=== PATIENT | male | born 1930 | race Caucasian/White ===

== ENCOUNTER 2016-09-23 15:47 | Emergency (ER) | payer OTHER ==
[~2016-09-23] VITALS: Ht 188 cm; Wt 108.9 kg
[~2016-09-23 15:47] MED LIST: ADULT LOW DOSE81 MG PO; ADVAIR HFA 230M12 GM INH; ADVAIR HFA115 MCG/21 INH; ANTIVERT12.5 MG PO; ANTIVERT25 MG PO; AREDIA INJECTION; ARICEPT 5 MG TAB5 MG PO; ARICEPT10 MG PO; AUGMENTIN 500-1 EACH PO; AUGMENTIN 875-1 EACH PO; AVELOX 400 MG PO; AVELOX 400 MG400 M1 PO; AVELOX 400 MG400 MG PO; BACLOFEN 10MG T10 MG PO; BISACODYL10 MG RECTAL; BISCOLAX10 MG RC; BYSTOLIC 5 MG5 M1 PO; BYSTOLIC10 MG PO; CARAC30 GM TP; CEFTIN500 MG PO; COLACE100 MG PO; COUMADIN 2.5MG2.5 M1 PO; COUMADIN 5 MG TA5 M1 PO; DARVOCET-N 1001 EAC1 PO; DOXYCYCLINE 10100 MG PO; DURAGESIC1 EAC2 TD; ENOXAPARIN40 MG/0.1 SUBQ; FENTANYL PA12 MCG/HR TD; FISH OIL 1,0001 EAC5 PO; FISH OIL 1,001000 M1 PO; FISH OIL 1,001000 M2 PO; FISHOIL PO; FLAGYL500 MG PO; GLUCOSA-CHOND-1 EACH PO; GLUCOSAMINE HC100 GM; GLUCOSAMINE HC500 MG PO; HYDROCODON-ACE1 EAC5 PO; HYDROCODON-ACE1 EAC7 PO; HYDROCODONE PO; IBUPROFEN 600600 M1 PO; K-DUR 20 MEQ T20 MEQ PO; LACTULOSE10 GM/15 M PO; LASIX 20 MG TAB20 MG PO; LASIX 40 MG TAB40 M1 PO; LASIX 40 MG TAB40 M2 PO; LEVALBUTER1.25 MG/0. INH; LEXAPRO 10 MG T10 M1 PO; LEXAPRO 10 MG T10 MG PO; LEXAPRO20 MG PO; LIDODERM 5%1 PATC1 TOP; LIDODERM 5%1 PATC1 TRANSDERM; LIDODERM 5%1 PATCH TRANSDERM; LIPITOR40 MG PO; LOPRESSOR25 PO; LORTAB 5 MG/5001 TA1 PO; LORTAB 5-325 M1 EACH PO; LORTAB 5-500 T1 EAC1 PO; MAGNESIUM CITR296 ML PO; MILK OF MA2400 MG/10 PO; MIRALAX17 GM PO; MULTIVITAMINS PO; NEURONTIN 300300 M1 PO; NORCO 5-325 TA1 EACH; NORCO 5-325 TA1 EACH PO; OXYCODONE HCL5 M1 PO; PACERONE 200 M200 M1 PO; PACERONE200 MG PO; PAMIDRONATE; PERCOCET 7.5-31 EACH PO; PERCOCET PO; PHENERGAN-CODE120 ML PO; POTASSIUM20 PO; PREDNISOLONE 5 M5 M1 PO; PREDNISONE 10 M10 M1 PO; PREDNISONE 10 M10 MG; PREDNISONE 10 M10 MG PO; PREDNISONE 20 M20 M1 PO; PREDNISONE 20 M20 MG PO; PREDNISONE 5 MG5 M1; PREDNISONE 5 MG5 M1 PO; PRILOSEC 20 MG20 MG PO; PROTONIX40 M2 PO; ROBAXIN 750 MG750 M1 PO; SAVAYSA30 MG PO; SM GLUCOSAMINE1 EACH PO; SYMBICORT160 MCG/4. INH; SYNTHROID100 MCG PO; SYNTHROID75 MCG PO; SYNTHROID88 MCG PO; TRAMADOL 50 MG50 MG PO; TRIAMTERENE-HC1 EAC1 PO; TYLENOL325 MG PO; VENTOLIN17 GM; VISTARIL 25 MG25 M1 PO; VOLTAREN GEL 1100 G1 TOP; VOLTAREN100 GM; XOPENEX 1.25 MG/3 M1 INH; XOPENEX0.63 MG/3 INH; ZYRTEC10 M2 PO; [UNRECOGNIZED DRUG - OTHER] IV
[2016-09-23] MEDS ORDERED: SAVAYSA30 MG PO (16:13)
[2016-09-23 16:21] LABS: ABSOLUTE NEUTROPHILS 6.5 thou/uL (1.4-8.2); BASOPHILS 0.5 % (0.0-2.0); HEMATOCRIT 35.9 % (42.0-52.0); HEMOGLOBIN 12.5 gm/dL (14.0-18.0); LYMPHOCYTES 9.3 % (24.0-44.0); MCH 31.8 pg (26.0-34.0); MCHC 34.8 % (28.0-37.0); MCV 91.3 fL (80.0-100.0); MONOCYTES 9.4 % (1.0-8.0); PLATELET COUNT 154 thou/uL (150-400); POLYS 80.8 % (36.0-66.0); RBC 3.93 mil/uL (4.50-6.00); RDW 13.4 % (10.5-14.5); WBC 8.1 thou/uL (4.0-11.0)
[2016-09-23 16:26] LABS: MANUAL DIFF NO
[2016-09-23 17:19] LABS: CALCIUM 8.4 mg/dL (8.5-10.1); POTASSIUM 4.2 mmol/L (3.5-5.1)
[2016-09-23 17:43] VITALS: BP 129/68
[2016-11-16] MEDS ORDERED: PREDNISONE 10 M10 MG PO ×2 (10:37→11:10)
[2016-11-16] MEDS ORDERED: LEVAQUIN 500 M500 M6 PO (10:38)
[2016-11-16] MEDS ORDERED: LEVAQUIN 500 M500 M2 PO (11:10)
== END 2016-09-23 17:45 | disposition home or self-care (01) ==
LOC: ER 15:47
PROVIDERS: Nurse Practitioner
DX: R07.89 Other chest pain (principal); S00.12XA Contusion of left eyelid and periocular area, initial encounter; I48.91 Unspecified atrial fibrillation; J44.9 Chronic obstructive pulmonary disease, unspecified; G47.39 Other sleep apnea; R42 Dizziness and giddiness; E03.9 Hypothyroidism, unspecified; M19.90 Unspecified osteoarthritis, unspecified site; N18.3 Chronic kidney disease, stage 3 (moderate); G57.80 Other specified mononeuropathies of unspecified lower limb; F03.90 Unspecified dementia, unspecified severity, without behavioral disturbance, psychotic disturbance, mood disturbance, and anxiety; Z91.040 Latex allergy status; Z95.5 Presence of coronary angioplasty implant and graft; Z86.73 Personal history of transient ischemic attack (TIA), and cerebral infarction without residual deficits; Z96.651 Presence of right artificial knee joint; Z95.0 Presence of cardiac pacemaker; Z86.711 Personal history of pulmonary embolism; Z88.8 Allergy status to other drugs, medicaments and biological substances; Z87.891 Personal history of nicotine dependence; W10.8XXA Fall (on) (from) other stairs and steps, initial encounter; Y93.01 Activity, walking, marching and hiking; Y92.89 Other specified places as the place of occurrence of the external cause; Y99.8 Other external cause status

== ENCOUNTER → 2016-12-11 | Outpatient (CLI) | payer OTHER ==
[~2016-12-11] VITALS: Ht 182.9 cm; Wt 108.9 kg
[~2016-12-11] MED LIST changes: +ATORVASTATIN CA40 MG PO; +LEVAQUIN 500 M500 M2 PO; +LEVAQUIN 500 M500 M6 PO; +LEXAPRO 10 MG T10 M2 PO; +VOLTAREN GEL 1100 G2 TOP
--- NOTE | ~2016-12-11 | P ---
[facility] [place] [address] PROCEDURE REPORT Name: POLO VALIENTE Room #: REG Tiburcio Nowak#: [id number] Admission: 12/11/16 Attend Phys: Leonard Loera MD Discharge: Date of : 30 Report #: [id number] THIS REPORT FOR: //name// CC: Leonard Jimenez DATE OF SERVICE: 12/11/2016 PROCEDURE: Pacemaker generator exchange. PREOPERATIVE DIAGNOSIS: Pacemaker elective replacement interval. POSTOPERATIVE DIAGNOSIS: Pacemaker elective replacement interval. HISTORY OF PRESENT ILLNESS: The patient is an 86-year-old male with sick sinus syndrome, status post [employer] pacemaker implantation in 2007, whose device is currently at elective replacement interval. He is here for pacemaker generator exchange. ANESTHESIA: The patient underwent MAC anesthesia with no anesthesia related complications. DESCRIPTION OF PROCEDURE: The patient underwent informed consent. We discussed the details of the procedure including the risks, which include, but not limited to bleeding, infection and need for possible lead revisions. He understood these risks and is willing to proceed. As such, he was brought to the EP laboratory in a fasting and sedated state and prepped and draped in a sterile fashion and received IV antibiotics prior to the initiation of the procedure. Next, I injected lidocaine at the prior incision site. Incision was made and the pocket was opened using Bovie and blunt dissection. Next, the old pacemaker was disconnected from the leads. Leads were tested and found to be functioning normally. A new device was connected and the pocket was irrigated with vancomycin. The pocket was then closed in 3 layers using 2-0 for the deep layer, 3-0 for the mid layer and 4-0 for the subcuticular and surgical glue was placed to the outer skin. The patient awoke neurologically and hemodynamically intact. No complications and no significant bleeding. The explanted device was a [employer] model # FM6939, serial #[id number]. The newly implanted device was a [employer], model #AF6638, serial #[id number]. The atrial lead was a [employer] model #1688TC, 52 cm, serial #[id number] with a P-wave of 4.7 millivolts, pacing impedance of 410 ohms and pacing threshold of 0.75 volts at 0.4 milliseconds. The RV lead was a [employer] model #1688TC, 58 cm, serial #[id number] with a R-wave of 6.7 millivolts, pacing impedance of 410 ohms, and the pacing threshold 1 volt at 0.4 milliseconds. The device was programmed to the DDD 60-130 mode. CONCLUSIONS: [facility] [address] [place] [address] PROCEDURE REPORT Name: SUZIEJULIANOPOLODanii OLMSTEAD [facility] #: [id number] Admission: 12/11/16 Attend Phys: Leonard Loera MD Discharge: Date of : 30 Report #: [id number] 1. Successful dual-chamber pacemaker generator exchange. 2. Satisfactory atrial and ventricular pacing and sensing thresholds. By: 1132 1857 Leonard Loera MD /nt
[2016-12-11 08:29] LABS: ABSOLUTE NEUTROPHILS 4.9 thou/uL (1.4-8.2); BASOPHILS 0.2 % (0.0-2.0); EOSINOPHILS 0.2 % (0.0-3.0); HEMATOCRIT 37.2 % (42.0-52.0); HEMOGLOBIN 12.8 gm/dL (14.0-18.0); LYMPHOCYTES 20.1 % (24.0-44.0); MANUAL DIFF NO; MCH 31.5 pg (26.0-34.0); MCHC 34.3 g/dL (28.0-37.0); MCV 91.6 fL (80.0-100.0); MONOCYTES 10.3 % (1.0-8.0); PLATELET COUNT 148 thou/uL (150-400); POLYS 69.2 % (36.0-66.0); RBC 4.06 mil/uL (4.50-6.00); RDW 13.8 % (10.5-14.5); WBC 7.1 thou/uL (4.0-11.0)
[2016-12-11 08:38] VITALS: BP 146/67
[2016-12-11 08:44] LABS: CALCIUM 8.9 mg/dL (8.5-10.1); CREATININE 2.2 mg/dL (0.7-1.3); POTASSIUM 3.7 mmol/L (3.5-5.1)
[2016-12-11 08:45] LABS: APTT 24.1 Seconds (24.5-32.8); PROTIME 10.2 Seconds (9.3-11.4)
[2016-12-11 08:52] LABS: ALBUMIN 3.1 g/dL (3.4-5.0); TOTAL BILIRUBIN 0.6 mg/dL (<0.1-1.0); TOTAL PROTEIN 5.9 g/dL (6.4-8.2)
== END ==
LOC: CATH 08:03
PROVIDERS: Internal Medicine Cardiovascular Disease
DX: Z45.010 Encounter for checking and testing of cardiac pacemaker pulse generator [battery] (principal); I48.91 Unspecified atrial fibrillation; J44.9 Chronic obstructive pulmonary disease, unspecified; N18.3 Chronic kidney disease, stage 3 (moderate); G47.30 Sleep apnea, unspecified; Z95.1 Presence of aortocoronary bypass graft; M19.90 Unspecified osteoarthritis, unspecified site; I12.9 Hypertensive chronic kidney disease with stage 1 through stage 4 chronic kidney disease, or unspecified chronic kidney disease; E78.4 Other hyperlipidemia
CPT/HCPCS: 62110; 62900; 70005

== ENCOUNTER 2017-01-10 19:40 | Inpatient (IN) | payer OTHER ==
[~2017-01-10] VITALS: Ht 182.9 cm; Wt 106.3 kg
--- NOTE | ~2017-01-10 | EKG ---
[address] [place] [address] ELECTROCARDIOGRAM REPORT Name: POLO VALIENTE Room #: 303-P [facility]..#: [id number] Admission: 01/10/17 Attend Phys: Hiram Livingston Discharge: Date of : 30 Report #: [id number] THIS REPORT FOR: //name// [facility] ED Test Date: 2017-01-10 Test Time: 20:12:33 Pat Name: POLO VALIENTE Department: Room: [facility] Gender: M Concessions Manager: MZOOGuillermo : 1930 Requested By: Kat Contreras Order Number: [id number] MD: Leonard Loera Measurements Intervals Holmes Rate: 65 P: 12 NV: 235 QRS: -11 QRSD: 168 T: 19 QT: 516 QTc: 537 Interpretive Statements Sinus rhythm Prolonged NV interval Left bundle branch block Compared to ECG 07/18/2016 12:56:37 First degree AV block now present Left bundle-branch block now present AV dual-paced complex(es) or rhythm no longer present Ventricular-paced complex(es) or rhythm no longer present Electronically Signed On 01-12-2017 22:14:54 CDT by Leonard Loera [email or web address] <ELECTRONICALLY SIGNED> By: Leonard Loera MD 01/12/17 2214 11 11 Leonard Loera MD /EPI
--- NOTE | ~2017-01-10 | EKG ---
[address] [address] ELECTROCARDIOGRAM REPORT Name: SUZIEAnaPERICORONAPOLO AYSHA Room #: 303-[facility]..#: [id number] Admission: 01/10/17 Attend Phys: Hiram Livingston Discharge: Date of : 30 Report #: [id number] THIS REPORT FOR: //name// [facility] Test Date: 2017-01-11 Test Time: 03:19:25 Pat Name: POLO VALIENTE Department: Room: 303 P Gender: M Factory Assembler: karime soares rn : 1930 Requested By: Emilia Mcneil Order Number: [id number] MD: Leonard Loera Measurements Intervals [place] Rate: 65 P: FL: QRS: 4 QRSD: 171 T: 12 QT: 500 QTc: 520 Interpretive Statements Probably sinus rhythm Excess artifact making interpretation challenging Electronically Signed On 01-12-2017 22:17:19 CDT by Leonard Loera [email or web address] <ELECTRONICALLY SIGNED> By: Leonard Loera MD 01/12/17 2217 0319 0319 MD SJ Waters
--- NOTE | ~2017-01-10 | HC ---
[facility] [place] [address] CONSULTATION Name: POLO VALIENTE Room #: 303-P [facility] IN M.R.#: [id number] Admission: 01/13/17 Attend Phys: Hiram Livingston Discharge: 01/13/17 Date of : 30 Report #: [id number] THIS REPORT FOR: //name// CC: Hiram Jimenez DATE OF SERVICE: 01/13/2017 HISTORY OF PRESENT ILLNESS: The patient is an 86-year-old white male who was admitted with acute mental status changes, nausea. He has a history of chronic low back pain and renal insufficiency and had been started on a fentanyl patch a couple of weeks prior. CT of the head was negative. He was noted to have hypertension and was monitored with hydralazine p.r.n. His fentanyl was stopped with the mental status changes and he is to use Ultram. He seems to be gradually improving in that perspective. He does have significant peripheral neuropathy, which is due to the chemotherapy that he had for his multiple myeloma. He has symptoms involving both lower extremities as well as his upper extremities. He has an improving encephalopathy and does have peripheral neuropathy and we are seeing him in rehabilitation medicine consultation. PAST MEDICAL HISTORY: Includes prior history of AK. He has chronic kidney disease stage 3, TIA, sleep apnea with CPAP at night, chronic vertigo. He has a left knee surgery, coronary artery bypass grafting x 2 in 2000, CVA in 2001, back surgery in 2003, right knee replacement in 2006, multiple myeloma in 2007, pacemaker in 2007, noted to have back stenosis, hypertension, hyperlipidemia, and degenerative arthritis. PAST SURGICAL HISTORY: Delineated above. MEDICATIONS: Please see the full medication listing. HABITS: Former smoker, quit greater than a year ago. No history of ETOH abuse. ALLERGIES: LATEX and ALBUTEROL. SOCIAL HISTORY: Lives in a house with his , 2 steps in. Used a cane in the house and a walker when in public. His notes that he does have a gait belt and she would hold on to him whenever he would use the cane or if he did not use any gait aids. She did not need to use it, however, if he used the walker. She notes that he does have a history of falls with falling in the backyard, falling in the house, and is a definite risk. REVIEW OF SYSTEMS: Did not offer any complaints of any headache or visual problem. There is no chest pain, shortness of breath, or abdominal discomfort. Notes he does have some numbness with some weakness of his hands and notes especially numbness of both lower extremities below the knees. He does have [facility] [address] [place] [address] CONSULTATION Name: POLO VALIENTE Room #: 303-P [facility] IN M.R.#: [id number] Admission: 01/13/17 Attend Phys: Hiram Livingston Discharge: 01/13/17 Date of : 30 Report #: [id number] gait issues, which his notes. He has the chronic low back pain history. He does have decreased memory with some dementia as noted. PHYSICAL EXAMINATION: GENERAL: An 86-year-old white male in no obvious distress. VITAL SIGNS: Last recorded temperature 98.5, pulse 65, respirations 18, blood pressure 152/63. NEUROLOGIC: He is alert, pleasant, hard of hearing, has hearing aids, defer some answers to his , will follow basic 1 step commands. Pleasant and cooperative. Functional range of motion of both upper and lower extremities: Strength probably a grade 4-/5. He has some decreased distal sensation of his hands. He might have some mild decreased coordination. In his lower extremities, his strength is more of a grade 4-/5 proximally and 4- to 3+ distally. EXTREMITIES: He has definite decreased sensation which is significant below the knees with marked decreased proprioception of the large toes and some definite decreased proprioception even of the ankles. Appears to have some weakness of bilateral extensor hallucis longus. There is no focal calf swelling. No significant distal lower extremity edema. Functionally, he has been needing min assist with basic sit to stand transfers and needs assistance for short distance walker ambulation. ASSESSMENT: An 86-year-old white male with the following problem list: 1. Peripheral polyneuropathy. 2. Improving toxic metabolic encephalopathy. 3. Chronic kidney disease stage 3. 4. Chronic low back pain with intolerance to narcotics. 5. Chronic respiratory failure with chronic obstructive pulmonary disease. 6. Hypertension. 7. History of multiple myeloma. 8. Sleep apnea with CPAP at night. 9. History of chronic vertigo. 10. Gait instability with history of falls. 11. Prior subdural hematoma in 2003. 12. Prior back surgery in 2003. 13. History of some dementia and was living in a community with his . PLAN: The patient is a candidate for an acute [address] [place] [address] Inpatient Rehabilitation stay. From a preadmission screening perspective: 1. Prior level of function is well delineated above. 2. Expect level of improvement would be for the patient to become modified independent with transfers, mobility, and ADLs and also to further improve as far as cognitive level to return back to the home setting with his . We would anticipate length of stay of probably at least 7 days to 14 days pending progress. 3. Evaluation of the patient's risk for clinical complications. He does have [address] [place] [address] CONSULTATION Name: POLO VALIENTE Room #: 303-P [facility] IN M.R.#: [id number] Admission: 01/13/17 Attend Phys: Jerzycholo Guru Carlabecky Discharge: 01/13/17 Date of : 30 Report #: [id number] the above noted multiple medical comorbidities as noted above. 4. Condition that caused the need for rehabilitation would be the peripheral polyneuropathy and the toxic metabolic encephalopathy. 5. Treatments needed would include PT, OT, and speech 1 hour per day each 5 days a week throughout the duration of the acute inpatient rehabilitation stay. We may be able to transition increasing the PT and OT and decreasing the speech depending upon how he does. 6. Anticipated discharge destination is to home with . 7. Would anticipate home healthcare therapies once ready for discharge. 8. The patient meets diagnostic criteria for an acute in-hospital inpatient rehabilitation stay. He meets medical necessity criteria. He does have the tolerance for an acute rehab level of therapies and has appropriate discharge goals back to the home setting. <ELECTRONICALLY SIGNED> By: Monty Tello MD 01/15/17 1528 1404 2244 Monty Tello MD /nt
[2017-01-10 19:41] VITALS: BP 195/79
[2017-01-10] MEDS ORDERED: LOPRESSOR50 PO (20:00)
[2017-01-10] MEDS ORDERED: FENTANYL PA25 MCG/HR TRANSDERM (20:01)
[2017-01-10 20:05] LABS: HEMATOCRIT 38.2 % (42.0-52.0); HEMOGLOBIN 13.2 gm/dL (14.0-18.0); MCH 31.2 pg (26.0-34.0); MCHC 34.7 g/dL (28.0-37.0); MCV 90.2 fL (80.0-100.0); PLATELET COUNT 141 thou/uL (150-400); RBC 4.23 mil/uL (4.50-6.00); RDW 13.5 % (10.5-14.5); WBC 5.6 thou/uL (4.0-11.0)
[2017-01-10 20:10] LABS: MANUAL DIFF YES
[2017-01-10 20:20] LABS: ANION GAP 10 mmol/L (7-16); BUN 24 mg/dL (7-18); CALCIUM 7.6 mg/dL (8.5-10.1); CHLORIDE 108 mmol/L (98-107); CO2 25 mmol/L (21-32); GLUCOSE 145 mg/dL (74-106); SODIUM 143 mmol/L (136-145)
[2017-01-10 20:31] LABS: ALBUMIN 3.1 g/dL (3.4-5.0); ALKALINE PHOSPHATASE 86 U/L (46-116); NT-PRO BRAIN NAT PEPTIDE 843 pg/mL (<300); SGOT 19 U/L (15-37); SGPT 17 U/L (30-65); TOTAL BILIRUBIN 0.6 mg/dL (<0.1-1.0); TROPONIN-I < 0.04 ng/mL (<0.04-0.07)
[2017-01-10 20:37] LABS: ABSOLUTE NEUTROPHILS 5.1 thou/uL (1.4-8.2); METAMYELOCYTES 1 %; TOTAL CELL COUNT 100
[2017-01-10 20:57] LABS: URINE BILIRUBIN NEGATIVE (Negative); URINE BLOOD TRACE (Negative); URINE COLOR YELLOW; URINE GLUCOSE-RANDOM* NEGATIVE (Negative); URINE KETONES NEGATIVE (Negative); URINE NITRITE NEGATIVE (Negative); URINE PROTEIN (DIPSTICK) NEGATIVE (Negative); URINE SPECIFIC GRAVITY 1.015 (1.003-1.035); URINE UROBILINOGEN 0.2 E.U./dl (0.2-1.0)
[2017-01-10 22:50] VITALS: BP 166/70
[2017-01-11] VITALS (12 sets, daily range): BP systolic 145–223; BP diastolic 59–104
[2017-01-12 00:05] VITALS: BP 149/70
[2017-01-12 04:04] VITALS: BP 171/71
[2017-01-12 05:28] LABS: ALBUMIN 3.1 g/dL (3.4-5.0); CREATININE 1.9 mg/dL (0.7-1.3); PHOSPHORUS 3.9 mg/dL (2.5-4.9)
[2017-01-12 07:06] VITALS: BP 151/66
[2017-01-12 15:33] VITALS: BP 150/67
[2017-01-12 19:34] VITALS: BP 140/61
[2017-01-13 04:05] VITALS: BP 151/63
[2017-01-13 05:02] LABS: CALCIUM 7.7 mg/dL (8.5-10.1); CREATININE 2.1 mg/dL (0.7-1.3); POTASSIUM 4.1 mmol/L (3.5-5.1)
[2017-01-13 07:27] VITALS: BP 152/63
[2017-01-13 08:06] VITALS: BP 152/63
[2017-01-13] MEDS ORDERED: TRAMADOL 50 MG50 MG PO (08:54)
== END 2017-01-13 16:45 | DRG 73 ==
LOC: ER 19:40 → EROBS 21:21 → 3N 22:54
PROVIDERS: Hospitalist; Nurse Practitioner Family
DX: G62.89 Other specified polyneuropathies (principal); G92 Toxic encephalopathy; J96.10 Chronic respiratory failure, unspecified whether with hypoxia or hypercapnia; R07.9 Chest pain, unspecified; I48.91 Unspecified atrial fibrillation; J44.9 Chronic obstructive pulmonary disease, unspecified; F03.90 Unspecified dementia, unspecified severity, without behavioral disturbance, psychotic disturbance, mood disturbance, and anxiety; Z96.653 Presence of artificial knee joint, bilateral; E03.9 Hypothyroidism, unspecified; M19.90 Unspecified osteoarthritis, unspecified site; I12.9 Hypertensive chronic kidney disease with stage 1 through stage 4 chronic kidney disease, or unspecified chronic kidney disease; N18.3 Chronic kidney disease, stage 3 (moderate); G47.30 Sleep apnea, unspecified; R26.9 Unspecified abnormalities of gait and mobility; Z96.89 Presence of other specified functional implants; E78.5 Hyperlipidemia, unspecified; E83.51 Hypocalcemia; T45.1X5A Adverse effect of antineoplastic and immunosuppressive drugs, initial encounter; Y92.89 Other specified places as the place of occurrence of the external cause; G89.29 Other chronic pain; M54.9 Dorsalgia, unspecified; Z79.891 Long term (current) use of opiate analgesic; Z79.899 Other long term (current) drug therapy; Z90.79 Acquired absence of other genital organ(s); Z95.5 Presence of coronary angioplasty implant and graft; Z98.42 Cataract extraction status, left eye; Z98.41 Cataract extraction status, right eye; Z86.73 Personal history of transient ischemic attack (TIA), and cerebral infarction without residual deficits; Z87.891 Personal history of nicotine dependence; Z86.711 Personal history of pulmonary embolism; Z87.81 Personal history of (healed) traumatic fracture; Z95.1 Presence of aortocoronary bypass graft; Z88.8 Allergy status to other drugs, medicaments and biological substances; Z91.040 Latex allergy status; I25.2 Old myocardial infarction

== ENCOUNTER 2017-01-13 14:21 | Inpatient (IN) | payer OTHER ==
[~2017-01-13] VITALS: Ht 182.9 cm; Wt 109.0 kg
--- NOTE | ~2017-01-13 | HC ---
[facility] [place] [address] CONSULTATION Name: POLO VALIENTE Room #: 515-P ADM IN M.R.#: [id number] Admission: 01/13/17 Attend Phys: Monty Tello MD Discharge: Date of : 30 Report #: [id number] THIS REPORT FOR: //name// CC: Monty Jimenez DATE OF SERVICE: 01/18/2017 ATTENDING PHYSICIAN: Monty Tello M.D. SHEETER HELPER: Audi Reese, PhD CLINICAL PRESENTATION: The patient is an 86-year-old male admitted to [facility] rehabilitation unit for a comprehensive inpatient rehabilitation program to improve functional mobility, activities of daily living and self-care and mental status secondary to a toxic metabolic encephalopathy. The patient is reported to have been living at home with his when he experienced mental status changes. He reportedly was given a fentanyl patch about 2 weeks prior to his admission. The fentanyl patch is described as having contributed to the confusion and disorientation. The patient also has peripheral neuropathy due to chemotherapy from multiple myeloma. PAST MEDICAL HISTORY: Includes his myocardial infarction, chronic kidney disease stage 3, TIA, sleep apnea with a CPAP, chronic vertigo, left knee surgery, coronary artery bypass grafting x 2, CVA in 2001, back surgery in 2003, right knee replacement in 2006, multiple myeloma in 2007 and a pacemaker placed in 2007, lower back stenosis, hypertension, hyperlipidemia and degenerative arthritis. A complete description of his medical condition and history can be found in his medical record. Neuropsychological consultation was requested to provide assistance in the assessment of cognitive and emotional status and to provide recommendations and services. Prior to this most recent admission, he was living independently with his in their home. This is his second marriage. He has 5 biological children and 1 step child. The patient has a 10th grade education. He was employed in the [employer] prior to his nursing home. 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 He does not report a history of treatment for alcohol/drug abuse or mental illness. TECHNIQUES UTILIZED: Clinical interview, review of medical records, staff consultation and behavioral observation, the brief cognitive stat exam and category fluency. [facility] [address] [place] [address] CONSULTATION Name: POLO VALIENTE AYSHA Room #: 515-P [facility] IN ..#: [id number] Admission: 01/13/17 Attend Phys: Monty Tello MD Discharge: Date of : 30 Report #: [id number] EXAMINATION FINDINGS: The patient was alert and cooperative with the assessment. He was uncertain of the reason for his hospitalization and has amnesia surrounding his initial admission. The patient was able to indicate that he had had an overdose of pain medication. He reports chronic pain as longstanding. Subjective feelings of depression are described as a result of his medical condition. He also reports depression from the sale of many of his possessions about 2 years ago. He does not report difficulty with sleep, appetite or energy level. Variability in memory is reported. His performance on the brief cognitive status exam was within normal limits with a total raw score of 43, which is within normal limits and in the average range. The patient had some difficulty with visual spatial organization and construction. Mental control and incidental memory appeared to be within normal limits. He was alert and oriented. Time estimation was within normal limits. Mental control was within normal limits. He was able to draw a clock and set the hands at a designated time. Frontal lobe control was within normal limits as assessed by inhibition test. DIAGNOSTIC IMPRESSION: Neurocognitive disorder, unspecified, without behavior disorder. Unspecified depressive disorder. RECOMMENDATIONS: The patient will benefit from a treatment program for depression that includes verbal praise and complements about participation in therapies and encouraged to recognize the gains in independence he is making. He will also benefit from the use of an antidepressant medication. Reportedly he is taking medication for memory. Thank you very much for allowing me to provide the consultation on this patient. <ELECTRONICALLY SIGNED> By: Audi Reese, PhD 01/22/17 1752 1453 2307 Audi Reese, PhD /nt
--- NOTE | ~2017-01-13 | PLAN ---
[facility] [place] [address] REHAB UNIT PLAN OF CARE Name: POLO VALIENTE Room #: 515-P ADM IN M.R.#: [id number] Admission: 01/13/17 Attend Phys: Monty Tello MD Discharge: Date of : 30 Report #: [id number] THIS REPORT FOR: //name// CC: Monty Jimenez DATE OF SERVICE: 01/15/2017 HISTORY OF PRESENT ILLNESS: The patient is seen back today in followup. He is in no distress. Last recorded temperature 36.6, pulse 65, respirations 18 and blood pressure 142/63. He does have some left upper back, posterior neck discomfort. He notes he does have some nightmares on occasion and thinks he may have strained his neck. His had utilized Lidoderm patch just prior to admission. Otherwise, he has no specific complaints. Temperature 36.6, pulse 65, respirations 18 and blood pressure 142/63. There is no focal spasm of his posterior neck cervical paraspinals or across the trapezius. He has some decreased cervical spine range of motion, but that is noted to be premorbid and his notes that he does have a history of degenerative arthritis. He did have a last CT scan in September of this year of the cervical spine, which showed extensive spondylosis, most severe at C5-C6 and C6-C7. From a functional perspective, he is transferring with min assist and is ambulating 110 feet contact guard with a front-wheeled walker. In occupational therapy, supervision for upper body dressing with min assist for lower body dressing. In speech therapy, he has mild comprehensive deficits with mild expressive deficits. ASSESSMENT: 1. Peripheral polyneuropathy. 2. Improving toxic metabolic encephalopathy. He does have the mild speech therapy deficits, as noted above. 3. Left-sided upper back, posterior neck discomfort. Apparently a muscular strain. He does have Voltaren gel that is ordered. We will ask physical therapy to use some superficial heat and some gentle soft tissue work over the area. 4. Chronic kidney disease stage 3. 5. Chronic low back pain with intolerance to narcotics. 6. Chronic respiratory failure with chronic obstructive pulmonary disease. 7. Hypertension. 8. History of multiple myeloma. 9. Obstructive sleep apnea with CPAP at night. 10. History of chronic vertigo. 11. Gait instability with history of falls. PLAN: The overall plan of care is based on the preadmission screen, post-admission physician evaluation and information garnered from therapy assessments. 1. Estimated length of stay is probably at least 7-10 days and likely longer. [address] [address] REHAB UNIT PLAN OF CARE Name: POLO VALIENTE AYSHA Room #: 515-P [facility] IN .R.#: [id number] Admission: 01/13/17 Attend Phys: Monty Tello MD Discharge: Date of : 30 Report #: [id number] 2. Medical prognosis is reasonably good. 3. Anticipated interventions includes the interdisciplinary acute inpatient rehabilitation program with PT and OT and speech, rehabilitation nursing assisting regarding medication management, skin care prophylaxis, bowel and bladder issues and nursing education. 4. Anticipated functional outcomes would be for the patient to become modified independent with transfers, mobility, ADLs along with cognition and communication so that he can hopefully return back to his prior living situation. 5. Discharge destination will be back to the home setting with . 6. Expected therapy by discipline includes PT, OT and speech 1 hour per day each 5 days a week throughout the duration of the acute inpatient rehabilitation stay. <ELECTRONICALLY SIGNED> By: Monty Tello MD 01/15/17 1534 1032 1057 Monty Tello MD /nt
--- NOTE | ~2017-01-13 | H ---
[facility] [place] [address] HISTORY AND PHYSICAL Name: POLO VALIENTE Room #: 515-P ADM IN M.R.#: [id number] Admission: 01/13/17 Attend Phys: Monty Tello MD Discharge: Date of : 30 Report #: [id number] THIS REPORT FOR: //name// CC: Monty Jimenez DATE OF SERVICE: 01/13/2017 HISTORY OF PRESENT ILLNESS: The patient is an 86-year-old white male originally admitted to [facility] with acute mental status changes and nausea. He has a history of chronic low back pain and renal insufficiency and was started on a fentanyl patch a couple of weeks prior. CT of the head was negative. He was noted to have hypertension and was monitored with hydralazine p.r.n. His fentanyl was stopped with the mental status changes and he was switched over to Ultram. He seemed to be gradually improving in that perspective. He also has significant peripheral neuropathy due to chemotherapy that he had for his multiple myeloma. He has symptoms involving both lower extremities as well as his upper extremities. He also has an improving encephalopathy and does have peripheral neuropathy. He has now been admitted for acute in-hospital inpatient rehabilitation. PAST MEDICAL HISTORY: Includes a prior history of an RI. He has chronic kidney disease stage 3, TIA, sleep apnea with CPAP at night, chronic vertigo. He has left knee surgery, coronary artery bypass grafting x 2 in 2000, CVA in 2001, back surgery 2003, right knee replacement 2006, multiple myeloma 2007, pacemaker 2007, noted to have lower back stenosis, hypertension, hyperlipidemia and degenerative arthritis. PAST SURGICAL HISTORY: As noted above. MEDICATIONS: Please see the full medication listing. Each of these was individually reconciled. The medication list includes his medications, supplements, over the counters, etc. HABITS: Former smoker, quit greater than a year ago. No history of ETOH abuse. ALLERGIES: LATEX and ALBUTEROL. SOCIAL HISTORY: Lives in a house with his , 2 steps in. Used a cane in a house and a walker when in public. His notes that he does have a gait belt and she would hold on to him whenever he would use the cane or if he did not use any gait aids. She did not need to use the gait belt, however, if he used a walker. She noted that he does have a history of falls with falling in the backyard, falling in the house and is a definite risk. REVIEW OF SYSTEMS: He did not offer any complaints of headache, visual [address] [address] HISTORY AND PHYSICAL Name: POLO VALIENTE Room #: 515-P [facility] IN .R.#: [id number] Admission: 01/13/17 Attend Phys: Monty Tello MD Discharge: Date of : 30 Report #: [id number] problems. No chest pain, shortness of breath, abdominal discomfort. He does have the numbness with some weakness of his hands as well as especially both lower extremities below the knee. He has the history of chronic low back pain, has decreased memory/dementia. PHYSICAL EXAMINATION: GENERAL: An 86-year-old white male in no obvious distress. VITAL SIGNS: Temperature 98.5, pulse 65, respirations 18, blood pressure 138/71. The patient was seen earlier and was somewhat sleepy. Facies appeared to be symmetric. HEENT: Appeared benign. CHEST: Sounded clear to auscultation. CARDIAC: Regular rate and rhythm. ABDOMEN: Bowel sounds positive, nontender. GENITOURINARY AND RECTAL: Deferred. NEUROLOGIC: He is rather hard of hearing. EXTREMITIES: Functional range of motion of both upper and lower extremities, strength is grade 4-/5. He has some decreased distal sensation, but again, I did not test it too much as I had tested it earlier with my consult. Sensation is especially in the lower extremities below the knee as well as some decrease of the hands. His lower extremity strength is probably more of a 4- to 3+/5 of his distal lower extremities. He does have weakness of bilateral extensor hallucis longus probably a grade 3+. No focal calf swelling. No significant distal lower extremity edema. He has been needing min assist with basic transfers. ASSESSMENT: An 86-year-old white male with the following problem list: 1. Peripheral polyneuropathy. 2. Improving toxic metabolic encephalopathy. 3. Chronic kidney disease stage 3. 4. Chronic low back pain with intolerance to narcotics. 5. Chronic respiratory failure with chronic obstructive pulmonary disease. 6. Hypertension. 7. History of multiple myeloma. 8. Sleep apnea with CPAP at night. 9. History of chronic vertigo. 10. Gait instability with history of falls. 11. Prior subdural hematoma in 2003. 12. Prior back surgery in 2003. 13. History of some dementia, but was living in the community with his . PLAN: The patient is admitted for acute in-hospital inpatient rehabilitation. From a postadmission physician evaluation perspective, there are no relevant changes since the preadmission screening. Please see the above review of prior and current medical and functional conditions and comorbidities. Please see the patient's prior and current functional status. As far as risk of complications, [address] [address] HISTORY AND PHYSICAL Name: POLO VALIENTE Room #: 515-P ADM IN [facility].#: [id number] Admission: 01/13/17 Attend Phys: Monty Tello MD Discharge: Date of : 30 Report #: [id number] he has the above noted comorbidities. Initial plan of care involves the interdisciplinary acute inpatient rehabilitation program with the goal of maximizing his functional independence, so he can hopefully return back to his prior living situation. Measurable functional goals would be for the patient to become modified independent with transfers, mobility issues, basic ADLs at least at the walker level. The goal is to get him back to the point where his can handle him at home. Prognosis is reasonably good. Would anticipate length of stay of probably at least 7-10 days and likely longer depending upon his progress. Potential barriers would include the multiple medical comorbidities and decreased functional status. He does have the cognitive deficits with his encephalopathy as well as the functional deficits, further complicated by the neuropathy. The patient meets diagnostic criteria for an acute in-hospital inpatient rehabilitation stay. He meets medical necessity criteria. He does have the tolerance for an acute rehab stay and has appropriate discharge goals back to the home setting. Please see my prior consult note dictation for further information and justification regarding his needs for an acute in-hospital inpatient rehabilitation stay. <ELECTRONICALLY SIGNED> By: Monty Tello MD 01/15/17 1534 1349 1421 Monty Tello MD /nt
[~2017-01-13 14:21] MED LIST changes: +FENTANYL PA25 MCG/HR TRANSDERM; +LOPRESSOR50 PO
[2017-01-13 17:00] VITALS: BP 115/66
[2017-01-14 05:56] VITALS: BP 138/71
[2017-01-14 06:42] LABS: HEMATOCRIT 36.8 % (42.0-52.0); HEMOGLOBIN 12.6 gm/dL (14.0-18.0); MCHC 34.4 g/dL (28.0-37.0); MCV 90.2 fL (80.0-100.0); RBC 4.08 mil/uL (4.50-6.00); RDW 13.7 % (10.5-14.5); WBC 8.5 thou/uL (4.0-11.0)
[2017-01-14 06:53] LABS: CALCIUM 8.2 mg/dL (8.5-10.1); CREATININE 1.8 mg/dL (0.7-1.3); POTASSIUM 4.4 mmol/L (3.5-5.1)
[2017-01-14 16:00] VITALS: BP 138/66
[2017-01-15 05:09] LABS: CALCIUM 8.3 mg/dL (8.5-10.1); CREATININE 2.1 mg/dL (0.7-1.3); MAGNESIUM 1.9 mg/dL (1.8-2.4); POTASSIUM 4.3 mmol/L (3.5-5.1)
[2017-01-15 05:30] VITALS: BP 162/64
[2017-01-15 16:00] VITALS: BP 125/67
[2017-01-16 05:30] VITALS: BP 124/77
[2017-01-16 16:14] VITALS: BP 132/62
[2017-01-17 04:58] VITALS: BP 136/58
[2017-01-17 05:14] LABS: CALCIUM 8.5 mg/dL (8.5-10.1); CREATININE 2.5 mg/dL (0.7-1.3); MAGNESIUM 2.1 mg/dL (1.8-2.4); POTASSIUM 4.1 mmol/L (3.5-5.1)
[2017-01-17 15:25] VITALS: BP 151/62
[2017-01-18 05:35] VITALS: BP 148/67
[2017-01-18 08:39] VITALS: BP 110/57
[2017-01-18 15:26] VITALS: BP 129/70
[2017-01-19 05:56] VITALS: BP 118/66
[2017-01-19 06:45] VITALS: BP 105/70
[2017-01-19 17:06] VITALS: BP 149/69
[2017-01-20 04:44] VITALS: BP 135/63
[2017-01-20 16:00] VITALS: BP 124/54
[2017-01-21 02:45] LABS: HEMATOCRIT 33.5 % (42.0-52.0); HEMOGLOBIN 11.6 gm/dL (14.0-18.0); MCH 31.3 pg (26.0-34.0); MCHC 34.7 g/dL (28.0-37.0); MCV 90.1 fL (80.0-100.0); RBC 3.72 mil/uL (4.50-6.00); RDW 13.4 % (10.5-14.5); WBC 7.3 thou/uL (4.0-11.0)
[2017-01-21 02:51] LABS: CALCIUM 8.5 mg/dL (8.5-10.1); CREATININE 2.1 mg/dL (0.7-1.3); POTASSIUM 4.1 mmol/L (3.5-5.1)
[2017-01-21 05:26] VITALS: BP 128/78
[2017-01-21 08:00] VITALS: BP 124/59
[2017-01-21 13:47] VITALS: BP 124/59
[2017-01-21 17:30] VITALS: BP 138/67
[2017-01-22 08:00] VITALS: BP 135/70
[2017-01-22 09:23] LABS: ABSOLUTE NEUTROPHILS 7.2 thou/uL (1.4-8.2); BASOPHILS 0.4 % (0.0-2.0); HEMATOCRIT 38.7 % (42.0-52.0); HEMOGLOBIN 13.2 gm/dL (14.0-18.0); LYMPHOCYTES 20.7 % (24.0-44.0); MCHC 34.2 g/dL (28.0-37.0); MCV 90.8 fL (80.0-100.0); MONOCYTES 8.4 % (1.0-8.0); PLATELET COUNT 174 thou/uL (150-400); POLYS 70.5 % (36.0-66.0); RBC 4.27 mil/uL (4.50-6.00); RDW 13.4 % (10.5-14.5); WBC 10.2 thou/uL (4.0-11.0)
[2017-01-22 09:25] LABS: MANUAL DIFF NO
[2017-01-22 09:34] LABS: ALBUMIN 3.3 g/dL (3.4-5.0); CALCIUM 9.4 mg/dL (8.5-10.1); CREATININE 2.3 mg/dL (0.7-1.3); DIRECT BILIRUBIN 0.1 mg/dL (<0.1-0.3); POTASSIUM 4.3 mmol/L (3.5-5.1); TOTAL BILIRUBIN 0.5 mg/dL (<0.1-1.0); TOTAL PROTEIN 6.5 g/dL (6.4-8.2)
[2017-01-22 13:30] VITALS: BP 124/59
[2017-01-22 15:38] VITALS: BP 135/62
[2017-01-23 05:51] VITALS: BP 119/67
[2017-01-23 08:30] VITALS: BP 119/65
[2017-01-23] MEDS ORDERED: TRAMADOL 50 MG50 MG PO (09:21)
[2017-01-23 10:53] VITALS: BP 124/59
== END 2017-01-23 13:13 | disposition home or self-care (01) | DRG 92 ==
PROVIDERS: Family Medicine; Nurse Practitioner; Physical Medicine & Rehabilitation
DX: G92 Toxic encephalopathy (principal); J96.10 Chronic respiratory failure, unspecified whether with hypoxia or hypercapnia; M19.90 Unspecified osteoarthritis, unspecified site; G62.9 Polyneuropathy, unspecified; J44.9 Chronic obstructive pulmonary disease, unspecified; G47.33 Obstructive sleep apnea (adult) (pediatric); R42 Dizziness and giddiness; R26.9 Unspecified abnormalities of gait and mobility; Z96.651 Presence of right artificial knee joint; E78.5 Hyperlipidemia, unspecified; N18.3 Chronic kidney disease, stage 3 (moderate); F32.9 Major depressive disorder, single episode, unspecified; G89.29 Other chronic pain; M54.5 Low back pain; F03.90 Unspecified dementia, unspecified severity, without behavioral disturbance, psychotic disturbance, mood disturbance, and anxiety; I48.91 Unspecified atrial fibrillation; I12.9 Hypertensive chronic kidney disease with stage 1 through stage 4 chronic kidney disease, or unspecified chronic kidney disease; I25.2 Old myocardial infarction; Z86.73 Personal history of transient ischemic attack (TIA), and cerebral infarction without residual deficits; Z95.1 Presence of aortocoronary bypass graft; Z95.0 Presence of cardiac pacemaker; Z88.8 Allergy status to other drugs, medicaments and biological substances; Z91.040 Latex allergy status; Z95.5 Presence of coronary angioplasty implant and graft; Z86.711 Personal history of pulmonary embolism; Z79.899 Other long term (current) drug therapy
CPT/HCPCS: 10112

== ENCOUNTER 2017-04-17 14:55 | Inpatient (IN) | payer OTHER ==
[~2017-04-17] VITALS: Ht 182.9 cm; Wt 108.3 kg
--- NOTE | ~2017-04-17 | HC ---
[facility] [place] [address] CONSULTATION Name: POLO VALIENTE Room #: 306-P ADM IN M.R.#: [id number] Admission: 04/17/17 Attend Phys: Von Jimenez MD Discharge: Date of : 30 Report #: [id number] THIS REPORT FOR: //name// CC: Syed Jimenez DATE OF SERVICE: 04/18/2017 PRIMARY CARE PHYSICIAN: Von Jimenez MD. REFERRAL PHYSICIAN: Syed Chauhan MD. REASON FOR REFERRAL: Dyspnea. HISTORY OF PRESENT ILLNESS: The patient is an 86-year-old white male with long history of COPD who presents with progressive dyspnea. A pulmonary consultation was requested. The patient is followed longitudinally in the office by Dr. Hardy. He is known to have COPD with overlap syndrome with asthma. His last hospitalization was back in 01/2017. The patient is normally on Symbicort, nebulized Xopenex. According to the , the patient has been doing fairly well until about a week ago when he developed cold-like symptoms. Antibiotics were given as an outpatient. Symptoms did not improve, but worsened yesterday. He was then admitted. Otherwise, no recent febrile illness, chest pain, or hemoptysis. He had a productive cough of yellowing to green sputum. No recent nausea, vomiting, or diarrhea. PAST MEDICAL HISTORY: Remarkable for overlap syndrome with COPD and asthma, felt to be severe; atrial fibrillation, chronic; dementia; peripheral neuropathy; chronic kidney disease; THAO on auto-titrating CPAP; vertigo; history of multiple fractures; coronary artery disease with prior stenting; osteoarthritis, severe and history of venous thromboembolic disease. PAST SURGICAL HISTORY: Status post permanent pacemaker placement and coronary artery bypass surgery. ALLERGIES: ALBUTEROL, which causes tachycardia, LATEX causes severe crump. HOME MEDICATIONS: Reviewed as in the medication list. [facility] [address] [place] [address] CONSULTATION Name: POLO VALIENTE Room #: 306-P [facility] IN [facility].#: [id number] Admission: 04/17/17 Attend Phys: Von Jimenez MD Discharge: Date of : 30 Report #: [id number] FAMILY HISTORY: Mother with rheumatoid arthritis, also history of lung cancer, brain tumor, diabetes, and coronary artery disease in other members of the family. SOCIAL HISTORY: The patient is and lives with his . The patient has smoked, but quit in 1973. REVIEW OF SYSTEMS: As mentioned above, otherwise a 10-point system review negative. PHYSICAL EXAMINATION: GENERAL: He is awake, alert, in no apparent distress. VITAL SIGNS: Temperature is 98.5 degrees Fahrenheit, pulse is 62, respiratory rate is 19, blood pressure is 130/64 mmHg, and saturation is 97% on O2. HEENT: Normocephalic and atraumatic. NECK: Supple without any lymphadenopathy or thyromegaly. CHEST: Breath sounds are fair. Air movements are decreased. No obvious rales. No obvious wheezes are heard. CARDIOVASCULAR: Normal S1, S2. There are no murmurs or gallop. There is no JVD. There is no carotid bruit. Pulses are 2+/4+ bilaterally. ABDOMEN: Soft, nontender. No organomegaly or masses felt. GENITOURINARY: Deferred. RECTAL: Deferred. EXTREMITIES: There is no edema, cyanosis, or clubbing. LABORATORY DATA: Chest x-ray on admission revealed chronic mild plate-like atelectasis involving the right lower lobe, otherwise no acute changes. Electrolytes: Sodium 140, potassium 5.6, chloride 105, CO2 is 26, BUN is 28, and creatinine is 2.2, which appears to be baseline. WBC 9600, no obvious left shift, hemoglobin 12.6, and platelets are normal. Albumin 3.0. IMPRESSION: 1. Progressive dyspnea in this 86-year-old white male with a long history of chronic obstructive pulmonary disease/asthma. Chest x-ray is relatively unremarkable. Suspect the patient has underlying exacerbation of chronic obstructive pulmonary disease/asthma. May be related to recent viral syndrome. 2. Chronic obstructive pulmonary disease/asthma overlap, felt to be severe impairment. 3. Chronic kidney disease, creatinine at baseline. 4. Coronary artery disease, status post coronary bypass surgery. 5. Sick sinus syndrome status post permanent pacemaker. 6. Multiple lymphoma. 7. Dementia. 8. Peripheral neuropathy. 9. Past history of cerebrovascular accident with right-sided weakness. 10. Hypertension, gastroesophageal reflux disease, and hypothyroidism. [address] [address] CONSULTATION Name: POLO VALIENTE Room #: 306-P [facility] IN M.R.#: [id number] Admission: 04/17/17 Attend Phys: Von Jimenez MD Discharge: Date of : 30 Report #: [id number] 11. Obstructive sleep apnea, on auto-CPAP. RECOMMENDATIONS: I agree with usual treatment including corticosteroids, bronchodilators, and broad-spectrum antibiotics. DVT and GI prophylaxis will be addressed. Wean O2 for saturation 90%. Continue CPAP at night time. Thank you for this consultation. By: 1159 1540 PILLO Beck /kathie
--- NOTE | ~2017-04-17 | 2DMMODE ---
[facility] [address] [place] [address] 2 D/M-MODE ECHOCARDIOGRAM Name: POLO VALIENTE AYSHA Room #: 306-P ADM IN M.R.#: [id number] Admission: 04/17/17 Attend Phys: Von Jimenez, Discharge: Date of : 30 Date of Service: 04/23/17 1408 Report #: [id number] THIS REPORT FOR: //name// APPROVED REPORT Study performed: 04/23/2017 12:15:03 EXAM: Comprehensive 2D, Doppler, and color-flow Echocardiogram Patient Location: Echo lab Room #: 306 Status: routine BSA: 2.30 HR: 80 bpm BP: 179/77 mmHg Rhythm: NSR Other Information Study Quality: Adequate Technically limited study due to lung disease, body habitus. Indications Dyspnea Hx: CABG, PPM, HTN 2D Dimensions RVDd: 42.43 mm LVEF(%): 62.18 (>50%) IVSd: 14.95 (7-11mm) LVOT Diam: 23.42 (18-24mm) LVDd: 51.93 mm PWd: 14.71 (7-11mm) Ascending Ao: 41.55 (22-36mm) LVDs: 34.41 (25-40mm) Aortic Root: 38.56 mm Polk's LVEF: 62.18 % Volumes Left Atrial Volume (Systole) Single Plane 4CH: 86.56 mL Single Plane 2CH: 86.07 mL LA ESV Index: 40.00 mL/m2 Aortic Valve AoV Peak Deepak.: 2.22 m/s AO Peak Gr.: 19.70 mmHg LVOT Max P.02 mmHg AO Mean Gr.: 11.62 mmHg AO V2 Mean: 1.64 m/s LVOT Max V: 1.12 m/s AO V2 VTI: 41.52 cm [facility] [place] [address] 2 D/M-MODE ECHOCARDIOGRAM Name: POLO VALIENTE [facility] Room #: 306-P [facility] IN .R.#: [id number] Admission: 04/17/17 Attend Phys: Von Jimenez, Discharge: Date of : 30 Date of Service: 04/23/17 1408 Report #: [id number] LOLLY Vmax: 2.17 cm2 Mitral Valve E/A Ratio: 0.7 MVA Planimetry: 2281.69 mm2 MV Decel. Time: 180.24 ms MV E Max Deepak.: 0.59 m/s MV A Deepak.: 0.87 m/s MV PHT: 52.27 ms IVRT: 87.66 ms Pulmonary Valve PV Peak Deepak.: 0.90 m/s PV Peak Gr.: 3.22 mmHg Pulmonary Vein P Vein S: 0.73 m/s P Vein A: 0.32 m/s P Vein D: 0.54 m/s P Vein A Dur.: 120.0 msec P Vein S/D Ratio: 1.35 Tricuspid Valve TR Peak Deepak.: 3.10 m/s TR Peak Gr.: 38.56 mmHg Left Ventricle The left ventricle is normal size. Moderate concentric left ventricular hypertrophy. The left ventricular systolic function is normal. LVEF is 55%. Mild diastolic dysfunction is present (impaired relaxation pattern). Right Ventricle Right ventricle is mildly dilated. The right ventricular systolic function is normal. Pacemaker lead is present in the right ventricle. Atria Left atrium is dilated. Right atrium is dilated. Aortic Valve Aortic valve is calcified. Trace aortic regurgitation. There is no aortic valvular stenosis. Mitral Valve The mitral valve is normal in structure. Mild mitral annular calcification. Mild mitral regurgitation. Tricuspid Valve not well visualized There is moderate tricuspid regurgitation. There is moderate pulmonary hypertension with an estimated PAP of 39mmHg [place] [address] [place] [address] 2 D/M-MODE ECHOCARDIOGRAM Name: POLO VALIENTE Room #: 306-P [facility] IN ..#: [id number] Admission: 04/17/17 Attend Phys: Von Jimenez, Discharge: Date of : 30 Date of Service: 04/23/17 1408 Report #: [id number] plus the right atrial pressure. Pulmonic Valve The pulmonary valve is normal in structure. Trace pulmonic regurgitation. Great Vessels Aortic root is dilated at 3.9cm Ascending aorta is dilated at 4.2cm. IVC is not well visualized. Pericardium There is no pericardial effusion. <Conclusion> The left ventricle is normal size. LVEF is 55%. Right ventricle is mildly dilated. The right ventricular systolic function is normal. Pacemaker lead is present in the right ventricle. Left atrium is dilated. Right atrium is dilated. Aortic valve is calcified. Trace aortic regurgitation. The mitral valve is normal in structure. Mild mitral annular calcification. Mild mitral regurgitation. not well visualized There is moderate tricuspid regurgitation. There is moderate pulmonary hypertension with an estimated PAP of 39mmHg plus the right atrial pressure. The pulmonary valve is normal in structure. Trace pulmonic regurgitation. Aortic root is dilated at 3.9cm Ascending aorta is dilated at 4.2cm. <ELECTRONICALLY SIGNED> By: Adiel Oliveira MD 04/23/17 1408 1408 1408 Adiel Oliveira MD /INF
--- NOTE | ~2017-04-17 | H ---
[facility] [place] [address] HISTORY AND PHYSICAL Name: POLO VALIENTE Room #: 306-P ADM IN M.R.#: [id number] Admission: 04/17/17 Attend Phys: Von Jimenez MD Discharge: Date of : 30 Report #: [id number] THIS REPORT FOR: //name// CC: Syed Jimenez CHIEF COMPLAINT: Cough and shortness of breath. HISTORY OF PRESENT ILLNESS: The patient is an 86-year-old man with complicated past medical history, including history of COPD, who was treated about a week ago for COPD exacerbation. He just finished his prednisone and antibiotic course. The patient visited primary care physician, and he was referred here for further evaluation and inpatient treatment. The patient states that he was sent here because his examination revealed wheezes and abnormal lung sounds. The patient feels short of breath, which is his baseline. Since he came in, he was started on oxygen by nasal cannula. His oxygen saturation is in low to mid 90s. Overall, he feels well, and he denies any complaints except the shortness of breath at baseline. He also has mild cough, that is nonproductive. The patient denies fevers or chills. He has no chest pains. PAST MEDICAL HISTORY: 1. COPD, non-oxygen dependent. 2. Chronic kidney disease stage 3. 3. Coronary artery disease. 4. Sick sinus syndrome, status post pacemaker. 5. Dementia. 6. Multiple myeloma. 7. Peripheral neuropathy due to chemotherapy. 8. CVA, residual right-sided weakness. 9. Hypertension. 10. GERD. 11. Hypothyroidism. HOME MEDICATIONS: Reviewed and documented in the patient's chart. FAMILY HISTORY: Reviewed and not pertinent to the patient's current condition. SOCIAL HISTORY: The patient lives with his . He does not smoke cigarettes, and does not drink alcohol. REVIEW OF SYSTEMS: As above in HPI section. All others negative. PHYSICAL EXAMINATION: GENERAL: The patient is an elderly man who is in no apparent distress. VITAL SIGNS: Blood pressure is 158/73, heart rate is 65, respiration is 18-20, temperature is 98.0, and oxygen saturation is 97% on 2 liters of oxygen by nasal cannula. [address] [address] HISTORY AND PHYSICAL Name: POLO VALIENTE AYSHA Room #: 306-P [facility] IN ..#: [id number] Admission: 04/17/17 Attend Phys: Von Jimenez MD Discharge: Date of : 30 Report #: [id number] HEENT: Pupils are equal. Eye movements are normal. The patient has anicteric sclerae. NECK: Supple. The patient has no thyromegaly. Oral mucosa is moist. Neck lymphadenopathy is not palpated. RESPIRATORY: The patient has scattered wheezes. Respiratory sounds are diminished throughout. The patient has no crackles or rhonchi. CARDIOVASCULAR: The patient has regular rhythm and rate. He has no murmurs, gallops, or rubs. S1 and S2 are distant. GASTROINTESTINAL: Abdomen is soft, nondistended and nontender. Bowel sounds are present. The patient has no hepatomegaly or splenomegaly. MUSCULOSKELETAL: There is no edema, cyanosis, or clubbing. NEUROLOGIC: The patient has residual mild right-sided weakness. He is alert and oriented times 2, himself and place. SKIN: The patient has no skin lesions. LABS AND IMAGING STUDIES: Not available at this time. ASSESSMENT AND PLAN: 1. Chronic obstructive pulmonary disease exacerbation, mild, based on clinical presentation. The patient will be started on nebulizers, as well as IV steroids, and Levaquin. The patient is well known by pulmonary service. [employer] Technician will be consulted. 2. Hypertension. Blood pressure is slightly elevated. Home medications will be confirmed and renewed. Hydralazine will be used for elevated blood pressure. 3. Hypothyroidism, the patient is on levothyroxine 100 mcg a day. We will check TSH and adjust levothyroxine as necessary. 4. History of multiple myeloma. The patient started 24-hour urine collection this morning, which will be completed tomorrow morning. This will be followed by the patient's oncologist. 5. Deep venous thrombosis prophylaxis. We will use subcutaneous Lovenox, renally adjusted dose. <ELECTRONICALLY SIGNED> By: Syed Chauhan MD 04/18/17 1534 1710 1849 Syed Chauhan MD /nt
[2017-04-17 16:55] VITALS: BP 158/73
[2017-04-17 17:26] LABS: HEMATOCRIT 37.2 % (42.0-52.0); HEMOGLOBIN 12.6 gm/dL (14.0-18.0); MCH 30.9 pg (26.0-34.0); PLATELET COUNT 168 thou/uL (150-400); RBC 4.09 mil/uL (4.50-6.00); RDW 13.7 % (10.5-14.5); WBC 9.6 thou/uL (4.0-11.0)
[2017-04-17 17:28] LABS: MANUAL DIFF YES
[2017-04-17 17:44] LABS: CALCIUM 8.6 mg/dL (8.5-10.1); CREATININE 2.4 mg/dL (0.7-1.3); POTASSIUM 4.8 mmol/L (3.5-5.1); TOTAL BILIRUBIN 0.7 mg/dL (<0.1-1.0)
[2017-04-17 17:47] LABS: PLATELET ESTIMATE NORMAL; TOTAL CELL COUNT 100
[2017-04-17 20:00] VITALS: BP 193/75
[2017-04-18] VITALS: BP 146/59
[2017-04-18 04:00] VITALS: BP 162/99
[2017-04-18 04:07] LABS: CALCIUM 8.5 mg/dL (8.5-10.1); CREATININE 2.2 mg/dL (0.7-1.3); POTASSIUM 5.6 mmol/L (3.5-5.1)
[2017-04-18 04:16] LABS: HEMATOCRIT 37.3 % (42.0-52.0); HEMOGLOBIN 12.9 gm/dL (14.0-18.0); MCH 31.1 pg (26.0-34.0); MCHC 34.5 g/dL (28.0-37.0); MCV 90.3 fL (80.0-100.0); PLATELET COUNT 171 thou/uL (150-400); RBC 4.13 mil/uL (4.50-6.00); RDW 13.7 % (10.5-14.5); WBC 6.2 thou/uL (4.0-11.0)
[2017-04-18 04:17] LABS: MANUAL DIFF YES
[2017-04-18 05:18] LABS: ABSOLUTE NEUTROPHILS 5.5 thou/uL (1.4-8.2); MYELOCYTES 2 %; TOTAL CELL COUNT 100
[2017-04-18 08:26] LABS: URINE BILIRUBIN NEGATIVE (Negative); URINE BLOOD NEGATIVE (Negative); URINE COLOR YELLOW; URINE GLUCOSE-RANDOM* TRACE (Negative); URINE KETONES NEGATIVE (Negative); URINE LEUKOCYTES-REFLEX NEGATIVE (Negative); URINE PROTEIN (DIPSTICK) TRACE (Negative); URINE SPECIFIC GRAVITY 1.015 (1.003-1.035); URINE UROBILINOGEN 0.2 E.U./dl (0.2-1.0)
[2017-04-18 08:40] VITALS: BP 131/64
[2017-04-18 15:41] VITALS: BP 156/80; BP 1569/80
[2017-04-18 17:11] LABS: URINE CREATININE 81.94 mg/dL
[2017-04-18 17:12] LABS: URINE PROTEIN (MG/DL) 28.5 mg/dL
[2017-04-18 19:18] VITALS: BP 134/66
[2017-04-19 03:42] VITALS: BP 132/71
[2017-04-19 04:11] LABS: HEMATOCRIT 36.7 % (42.0-52.0); HEMOGLOBIN 12.4 gm/dL (14.0-18.0); MCH 30.3 pg (26.0-34.0); MCHC 33.9 g/dL (28.0-37.0); MCV 89.5 fL (80.0-100.0); PLATELET COUNT 161 thou/uL (150-400); RDW 13.5 % (10.5-14.5); WBC 12.5 thou/uL (4.0-11.0)
[2017-04-19 04:13] LABS: MANUAL DIFF YES
[2017-04-19 04:14] LABS: CALCIUM 8.6 mg/dL (8.5-10.1); CREATININE 2.1 mg/dL (0.7-1.3); POTASSIUM 4.2 mmol/L (3.5-5.1)
[2017-04-19 04:47] LABS: ABSOLUTE NEUTROPHILS 12.1 thou/uL (1.4-8.2); TOTAL CELL COUNT 100
[2017-04-19 07:46] VITALS: BP 149/83
[2017-04-19 17:05] VITALS: BP 129/81
[2017-04-19 20:00] VITALS: BP 137/66
[2017-04-20 03:57] LABS: HEMATOCRIT 34.7 % (42.0-52.0); MCHC 34.6 g/dL (28.0-37.0); MCV 89.7 fL (80.0-100.0); RBC 3.87 mil/uL (4.50-6.00); RDW 13.7 % (10.5-14.5); WBC 13.4 thou/uL (4.0-11.0)
[2017-04-20 04:00] VITALS: BP 109/83
[2017-04-20 04:31] LABS: ALBUMIN 2.7 g/dL (3.4-5.0); CALCIUM 8.4 mg/dL (8.5-10.1); CREATININE 2.3 mg/dL (0.7-1.3); POTASSIUM 3.9 mmol/L (3.5-5.1); TOTAL BILIRUBIN 0.4 mg/dL (<0.1-1.0); TOTAL PROTEIN 5.5 g/dL (6.4-8.2)
[2017-04-20 08:23] VITALS: BP 130/51
[2017-04-20 15:15] VITALS: BP 132/78
[2017-04-20 16:09] VITALS: BP 149/87
[2017-04-20 19:26] VITALS: BP 121/65
[2017-04-21 04:30] VITALS: BP 137/74
[2017-04-21 06:20] LABS: HEMATOCRIT 35.4 % (42.0-52.0); MANUAL DIFF YES; MCH 30.5 pg (26.0-34.0); MCHC 33.8 g/dL (28.0-37.0); MCV 90.1 fL (80.0-100.0); PLATELET COUNT 140 thou/uL (150-400); RBC 3.93 mil/uL (4.50-6.00); RDW 13.7 % (10.5-14.5); WBC 12.8 thou/uL (4.0-11.0)
[2017-04-21 06:28] LABS: CALCIUM 8.5 mg/dL (8.5-10.1); CREATININE 2.2 mg/dL (0.7-1.3)
[2017-04-21 08:30] VITALS: BP 150/67
[2017-04-21 08:44] LABS: ABSOLUTE NEUTROPHILS 11.4 thou/uL (1.4-8.2); PLATELET ESTIMATE NORMAL; TOTAL CELL COUNT 100
[2017-04-21 17:30] VITALS: BP 123/64
[2017-04-21 19:21] VITALS: BP 147/66
[2017-04-22 03:50] VITALS: BP 170/74
[2017-04-22 08:00] VITALS: BP 133/66
[2017-04-22 16:00] VITALS: BP 146/71
[2017-04-22 19:22] VITALS: BP 152/71
[2017-04-23 03:47] VITALS: BP 148/88
[2017-04-23 08:21] VITALS: BP 179/77
[2017-04-23 15:00] VITALS: BP 151/73
[2017-04-23 19:30] VITALS: BP 148/71
[2017-04-24 04:10] VITALS: BP 124/66
[2017-04-24 08:31] VITALS: BP 149/74
[2017-04-24] MEDS ORDERED: PREDNISONE 10 M10 MG PO (10:39)
[2017-04-24] MEDS ORDERED: PULMICORT0.5 MG/21 INH (10:43)
[2017-04-24] MEDS ORDERED: LEVAQUIN 500 M500 M1 PO (10:43)
[2017-04-24] MEDS ORDERED: LEVALBUTER1.25 MG/0. INH (10:43)
[2017-04-24] MEDS ORDERED: ARICEPT 5 MG TAB5 MG PO ×2 (10:43→10:46)
[2017-04-24] MEDS ORDERED: MUCINEX TA600 MG/TA1 PO (10:43)
[2017-04-24] MEDS ORDERED: AMOX TR-K CLV1 EAC3 PO (10:46)
[2017-04-24 14:06] VITALS: BP 149/74
== END 2017-04-24 15:00 | disposition home or self-care (01) | DRG 190 ==
LOC: 3N 14:55
PROVIDERS: Hospitalist; Internal Medicine Endocrinology, Diabetes & Metabolism
DX: J44.1 Chronic obstructive pulmonary disease with (acute) exacerbation (principal); E43 Unspecified severe protein-calorie malnutrition; C90.00 Multiple myeloma not having achieved remission; I69.351 Hemiplegia and hemiparesis following cerebral infarction affecting right dominant side; N17.9 Acute kidney failure, unspecified; I48.2 Chronic atrial fibrillation; F03.90 Unspecified dementia, unspecified severity, without behavioral disturbance, psychotic disturbance, mood disturbance, and anxiety; G47.33 Obstructive sleep apnea (adult) (pediatric); M19.90 Unspecified osteoarthritis, unspecified site; I25.10 Atherosclerotic heart disease of native coronary artery without angina pectoris; I12.9 Hypertensive chronic kidney disease with stage 1 through stage 4 chronic kidney disease, or unspecified chronic kidney disease; K21.9 Gastro-esophageal reflux disease without esophagitis; E03.9 Hypothyroidism, unspecified; N18.3 Chronic kidney disease, stage 3 (moderate); I49.5 Sick sinus syndrome; E87.5 Hyperkalemia; G62.2 Polyneuropathy due to other toxic agents; T45.1X5A Adverse effect of antineoplastic and immunosuppressive drugs, initial encounter; Z87.81 Personal history of (healed) traumatic fracture; Z95.0 Presence of cardiac pacemaker; Z95.1 Presence of aortocoronary bypass graft; Z88.8 Allergy status to other drugs, medicaments and biological substances; Z91.040 Latex allergy status; Z87.891 Personal history of nicotine dependence; Y92.89 Other specified places as the place of occurrence of the external cause
CPT/HCPCS: 10096

== ENCOUNTER 2017-07-07 12:13 | Emergency (ER) | payer OTHER ==
[~2017-07-07] VITALS: Ht 182.9 cm; Wt 104.3 kg
--- NOTE | ~2017-07-07 | EKG ---
[place] [address] [address] [facility] [place] [address] ELECTROCARDIOGRAM REPORT Name: SUZIEAnaPERICOPOLOLAI OLMSTEAD [facility] [id number] Admission: 07/07/17 Attend Phys: Discharge: Date of : 30 Report #: [id number] THIS REPORT FOR: //name// [facility] ED Test Date: 2017-07-07 Test Time: 12:44:14 Pat Name: POLO VALIENTE Department: Room: Gender: M Survey Methodologist: [facility] : 1930 Requested By: Kat Contreras Order Number: [id number] MD: eLonard Loera Measurements Intervals [place] Rate: 71 P: 14 ME: 208 QRS: -39 QRSD: 144 T: 66 QT: 448 QTc: 487 Interpretive Statements Sinus rhythm Left bundle branch block Compared to ECG 01/11/2017 03:19:25 Left bundle-branch block now present Electronically Signed On 07-07-2017 14:16:06 CDT by Leonard Loera [email or web address] <ELECTRONICALLY SIGNED> By: Leonard Loera MD 07/07/17 1416 D: [id number] Leonard Loera MD /ALFREDO
[~2017-07-07 12:13] MED LIST changes: +AMOX TR-K CLV1 EAC3 PO; +LEVAQUIN 500 M500 M1 PO; +MUCINEX TA600 MG/TA1 PO; +PULMICORT0.5 MG/21 INH
[2017-07-07 12:58] LABS: HEMATOCRIT 38.9 % (42.0-52.0); HEMOGLOBIN 13.1 gm/dL (14.0-18.0); MCH 30.4 pg (26.0-34.0); MCHC 33.8 g/dL (28.0-37.0); MCV 89.8 fL (80.0-100.0); PLATELET COUNT 161 thou/uL (150-400); RBC 4.33 mil/uL (4.50-6.00); RDW 14.8 % (10.5-14.5); WBC 18.3 thou/uL (4.0-11.0)
[2017-07-07 13:01] LABS: MANUAL DIFF YES
[2017-07-07 13:05] LABS: CALCIUM 9.2 mg/dL (8.5-10.1); CREATININE 2.1 mg/dL (0.7-1.3); POTASSIUM 4.1 mmol/L (3.5-5.1)
[2017-07-07 13:12] LABS: ALBUMIN 3.5 g/dL (3.4-5.0); TOTAL BILIRUBIN 0.6 mg/dL (<0.1-1.0); TOTAL PROTEIN 6.3 g/dL (6.4-8.2)
[2017-07-07 13:18] LABS: TOTAL CELL COUNT 100
[2017-07-07 13:19] LABS: PLATELET ESTIMATE NORMAL
[2017-07-07 14:54] LABS: URINE BILIRUBIN NEGATIVE (Negative); URINE BLOOD NEGATIVE (Negative); URINE COLOR YELLOW; URINE GLUCOSE-RANDOM* NEGATIVE (Negative); URINE KETONES NEGATIVE (Negative); URINE NITRITE NEGATIVE (Negative); URINE PROTEIN (DIPSTICK) TRACE (Negative); URINE UROBILINOGEN 0.2 E.U./dl (0.2-1.0)
[2017-07-07 15:28] VITALS: BP 197/105
== END 2017-07-07 15:30 | disposition home or self-care (01) ==
LOC: ER 12:13
PROVIDERS: Nurse Practitioner Family
DX: R11.2 Nausea with vomiting, unspecified (principal); J44.1 Chronic obstructive pulmonary disease with (acute) exacerbation; D72.829 Elevated white blood cell count, unspecified; I48.91 Unspecified atrial fibrillation; I12.9 Hypertensive chronic kidney disease with stage 1 through stage 4 chronic kidney disease, or unspecified chronic kidney disease; N18.3 Chronic kidney disease, stage 3 (moderate); E03.9 Hypothyroidism, unspecified; M19.90 Unspecified osteoarthritis, unspecified site; E78.5 Hyperlipidemia, unspecified; G47.30 Sleep apnea, unspecified; G62.9 Polyneuropathy, unspecified; F03.90 Unspecified dementia, unspecified severity, without behavioral disturbance, psychotic disturbance, mood disturbance, and anxiety; Z88.8 Allergy status to other drugs, medicaments and biological substances; Z98.62 Peripheral vascular angioplasty status; Z96.651 Presence of right artificial knee joint; Z95.0 Presence of cardiac pacemaker; Z91.040 Latex allergy status; Z86.711 Personal history of pulmonary embolism; Z87.891 Personal history of nicotine dependence

== ENCOUNTER 2017-08-21 10:09 | Inpatient (IN) | payer OTHER ==
[~2017-08-21] VITALS: Ht 182.9 cm; Wt 116.6 kg
--- NOTE | ~2017-08-21 | HC ---
[facility] [place] [address] CONSULTATION Name: POLO VALIENTE Room #: 419-P ADM IN M.R.#: [id number] Admission: 08/21/17 Attend Phys: Baljinder Palumbo DO Discharge: Date of : 30 Report #: [id number] THIS REPORT FOR: //name// CC: Baljinder Hayes MD DATE OF SERVICE: 08/21/2017 REASON FOR CONSULTATION: Left knee pain. HISTORY OF PRESENT ILLNESS: The patient is an 86-year-old female who has had multiple falls over the last few days at least one directly onto the knee. He reports significant pain on the left knee and pain with ambulation. He reports swelling as well. He denies any other new extremity complaints. He has had no specific treatment. He has been evaluated in the Emergency Department and admitted for further evaluation. REVIEW OF SYSTEMS: MUSCULOSKELETAL: See HPI. NEUROLOGIC: Denies numbness or tingling except for his chronic peripheral neuropathy. PAST MEDICAL HISTORY: Significant for atrial fibrillation, chronic kidney disease, COPD, back pain, hypothyroidism, hypertension, neuropathy, history of dementia and vertigo. ALLERGIES: LATEX AND ALBUTEROL. PAST SURGICAL HISTORY: Right total knee arthroplasty done greater than 10 years ago and he had a right skin cancer removed from the forearm, CABG, back surgery, subdural hematoma, pacemaker placement, right foot surgery. SOCIAL HISTORY: He does not use any ambulatory devices, lives at home. Denies smoking or drinking alcohol. PHYSICAL EXAMINATION: GENERAL: The patient is alert and oriented, interacts. The patient is a well-developed, well-nourished male in no acute distress. VITAL SIGNS: Most recent vital signs show temperature of 37.2, pulse rate 53, respiratory rate 24, blood pressure 187/92, pulse oximetry is 94% on 2 L nasal cannula. EXTREMITIES: Examination of his bilateral upper extremities: The right arm is bandaged, proximal forearm. He has some diffuse skin changes most likely due to poor vascularity. His sensation is grossly intact. He has no tenderness to [facility] [address] [place] [address] CONSULTATION Name: POLO VALIENTE AYSHA Room #: 419-P [facility] IN M.R.#: [id number] Admission: 08/21/17 Attend Phys: Baljinder Palumbo DO Discharge: Date of : 30 Report #: [id number] palpation throughout the entire bilateral upper extremities. He moves his hands, wrists, elbows, forearms and shoulders without pain. Right lower extremity exam: Sensation is grossly intact and is normal for this patient. He has 2+ dorsalis pedis pulse. EHL, FHL, dorsiflexion and plantar flexion are intact. He has no tenderness to palpation throughout the right thigh, knee, leg, ankle or foot. Left lower extremity shows significant joint effusion with anterior ecchymosis to the knee. He is able to perform a straight leg raise. He has no pain with hip range of motion. No pain with ankle or foot range of motion. He does have significant pain with attempted knee range of motion. The knee feels stable to varus and valgus stress. There is tenderness predominantly anteriorly at the patellar, but also at the medial and lateral joint line and the proximal tibia. There is no tenderness at the leg, ankle or foot. His sensation is intact per him. His skin is clean, dry and intact. His sensation is normal per him. He has 2+ dorsalis pedis pulse. EHL, FHL, dorsiflexion and plantar flexion are intact. RADIOGRAPHIC FINDINGS: AP, lateral and oblique view of the left knee show a significant amount of medial compartment arthrosis, osteophytes and some abnormal cortical density in the lateral tibial plateau and the patella appears to be intact. Apparently, forearm x-rays were done of the right, which shows no evidence of fracture or dislocation. Two views reviewed by myself. Laboratory studies done on 08/21/2017 show white blood cell count of 12.2, hemoglobin 11.4, hematocrit 33.3, platelet count 131. INR is 1. Chemistry is grossly normal except for an elevated creatinine at 2.3. IMPRESSION AND PLAN: Left knee pain after multiple falls without any definite evidence of fracture on x-ray. We will order a CT scan. We will review this in the morning and then determine weightbearing status or possible need for mobilization. Questions were encouraged and answered to the best of my ability. By: [id number] Sharee Tyler MD /nt
--- NOTE | ~2017-08-21 | HC ---
[facility] [place] [address] CONSULTATION Name: POLO VALIENTE Room #: 419-P [facility] IN M.R.#: [id number] Admission: 08/21/17 Attend Phys: Baljinder Palumbo DO Discharge: 08/24/17 Date of : 30 Report #: [id number] THIS REPORT FOR: //name// CC: Baljinder Jimenez DATE OF SERVICE: 08/22/2017 HISTORY OF PRESENT ILLNESS: The patient is an 86-year-old white male previously known to me who was on the acute inpatient rehab kumari from 01/13/2017 through 01/23/2017. At that point, he was on the rehab kumari for a toxic metabolic encephalopathy and has premorbid peripheral neuropathy. He has been at home in his normal state of health when he had a couple of falls and had the onset of left knee pain. He was admitted to [facility] and workup has revealed a left patellar fracture essentially nondisplaced. He does have a left knee hemarthrosis. He has been seen by Orthopedics. He is being treated conservatively and has had a hinged brace obtained. He is allowed weightbearing as tolerated with the hinged brace. We are seeing him in rehabilitation medicine consultation. PAST MEDICAL HISTORY: 1. Prior history of an [place]. 2. He has a history of chronic kidney disease. 3. Obstructive sleep apnea with CPAP at night. 4. Chronic vertigo. 5. Coronary artery bypass grafting in 2000. 6. CVA in 2001. 7. Back surgery in 2003. 8. Right knee replacement in 2006. 9. Multiple myeloma in 2007. 10. Pacemaker in 2007. 11. Lumbar spinal stenosis. 12. Hyperlipidemia. 13. Hypertension. 14. Exogenous obesity. PAST SURGICAL HISTORY: As noted above. MEDICATIONS: Please see the full medication listing. HABITS: Former smoker, quit greater than a year ago. ALLERGIES: LATEX AND ALBUTEROL. SOCIAL HISTORY: Lives in a house with his , 2 steps in. Used a cane in the house and a walker when in public. He does have a prior history of falls. [facility] [address] [place] [address] CONSULTATION Name: SUZIEJULIANOPOLODanii OLMSTEAD Room #: 419-P [facility] IN .R.#: [id number] Admission: 08/21/17 Attend Phys: Baljinder Palumbo DO Discharge: 08/24/17 Date of : 30 Report #: [id number] REVIEW OF SYSTEMS: No current complaints of chest pain, shortness of breath, abdominal discomfort. He has the left knee pain as expected. PHYSICAL EXAMINATION: GENERAL: An 86-year-old overweight white male in no obvious distress. He is alert, pleasant, follows basic commands without difficulty. VITAL SIGNS: Last recorded temperature is 99, pulse 64, respirations 20, blood pressure 151/76. NEUROLOGIC: Facies are symmetric. Functional range of motion of both upper extremities with strength grade 4-/5. DTRs are trace to 1. EXTREMITIES: Lower extremities, he has the left knee with a significant hemarthrosis noted. No focal calf swelling. He can dorsiflex to the left ankle. Functional range of motion of the right lower extremity with strength grade 4/5. He does have decreased distal sensation of the lower extremities consistent with his premorbid peripheral neuropathy. ASSESSMENT: An 86-year-old white male with the following problems: 1. Left patellar fracture essentially nondisplaced, is allowed weightbearing as tolerated with a hinged brace. 2. Premorbid polyneuropathy. 3. Chronic kidney disease stage 3. 4. Chronic obstructive pulmonary disease. 5. History of multiple myeloma. 6. Sleep apnea with CPAP at night. 7. History of chronic vertigo. 8. Gait instability with history of falls. 9. Prior history of some dementia, nevertheless living with his in the community. PLAN: The patient has had a prior acute rehab stay earlier this year and unfortunately, does not meet criteria for another acute in-hospital [facility] rehabilitation stay. We will need to look into other therapy options. Case management is assisting. Thank you for asking us to assist in this patient's care. <ELECTRONICALLY SIGNED> By: Monty Tello MD 08/25/17 1219 1125 1257 Monty Tello MD /[facility]
[2017-08-21 10:10] VITALS: BP 128/69
[2017-08-21] MEDS ORDERED: PREDNISONE 5 MG5 M1 PO (10:26)
[2017-08-21] MEDS ORDERED: [UNRECOGNIZED DRUG - OTHER] IV (10:28)
[2017-08-21 11:00] LABS: HEMATOCRIT 33.3 % (42.0-52.0); HEMOGLOBIN 11.4 gm/dL (14.0-18.0); MCH 31.3 pg (26.0-34.0); MCHC 34.3 g/dL (28.0-37.0); MCV 91.3 fL (80.0-100.0); RBC 3.65 mil/uL (4.50-6.00); RDW 14.4 % (10.5-14.5); WBC 12.2 thou/uL (4.0-11.0)
[2017-08-21 11:10] LABS: CALCIUM 8.5 mg/dL (8.5-10.1); CREATININE 2.3 mg/dL (0.7-1.3)
[2017-08-21 11:11] LABS: POTASSIUM 4.3 mmol/L (3.5-5.1)
[2017-08-21 12:17] LABS: INR 1.1; PROTIME 11.7 Seconds (9.3-11.4)
[2017-08-21 14:41] VITALS: BP 135/76
[2017-08-21 15:01] VITALS: BP 187/92
[2017-08-21 19:04] VITALS: BP 149/82
[2017-08-22 03:21] VITALS: BP 190/82
[2017-08-22 07:20] VITALS: BP 151/76
[2017-08-22] MEDS ORDERED: HYDROCODON-ACE1 EAC8 PO (08:29)
[2017-08-22 19:05] VITALS: BP 136/64
[2017-08-23 04:00] VITALS: BP 166/76
[2017-08-23 08:00] VITALS: BP 190/84
[2017-08-23 16:00] VITALS: BP 122/62
[2017-08-23 19:27] VITALS: BP 154/81
[2017-08-24 03:24] VITALS: BP 197/98
[2017-08-24 08:00] VITALS: BP 162/77
[2017-08-24] MEDS ORDERED: SAVAYSA30 MG PO (09:05)
[2017-08-24 09:26] VITALS: BP 162/77
== END 2017-08-24 15:15 | DRG 563 ==
LOC: ER 10:09 → 4E 11:57 → EROBS 11:57 → 4E 14:42
PROVIDERS: Physician Assistant
DX: S82.002A Unspecified fracture of left patella, initial encounter for closed fracture (principal); M25.061 Hemarthrosis, right knee; G62.9 Polyneuropathy, unspecified; I48.91 Unspecified atrial fibrillation; J44.9 Chronic obstructive pulmonary disease, unspecified; F03.90 Unspecified dementia, unspecified severity, without behavioral disturbance, psychotic disturbance, mood disturbance, and anxiety; R42 Dizziness and giddiness; Z96.651 Presence of right artificial knee joint; E03.9 Hypothyroidism, unspecified; M19.90 Unspecified osteoarthritis, unspecified site; I12.9 Hypertensive chronic kidney disease with stage 1 through stage 4 chronic kidney disease, or unspecified chronic kidney disease; E78.5 Hyperlipidemia, unspecified; G47.33 Obstructive sleep apnea (adult) (pediatric); E66.8 Other obesity; W19.XXXA Unspecified fall, initial encounter; N18.3 Chronic kidney disease, stage 3 (moderate); Z85.79 Personal history of other malignant neoplasms of lymphoid, hematopoietic and related tissues; Z88.8 Allergy status to other drugs, medicaments and biological substances; Z91.040 Latex allergy status; Z79.899 Other long term (current) drug therapy; Z95.5 Presence of coronary angioplasty implant and graft; Z98.42 Cataract extraction status, left eye; Z98.41 Cataract extraction status, right eye; Z95.1 Presence of aortocoronary bypass graft; Z86.73 Personal history of transient ischemic attack (TIA), and cerebral infarction without residual deficits; Z95.0 Presence of cardiac pacemaker; Z86.711 Personal history of pulmonary embolism; Z87.01 Personal history of pneumonia (recurrent); Z87.891 Personal history of nicotine dependence; I25.2 Old myocardial infarction; Z68.34 Body mass index [BMI] 34.0-34.9, adult; Y93.89 Activity, other specified; Y92.89 Other specified places as the place of occurrence of the external cause; Y99.8 Other external cause status; Z85.89 Personal history of malignant neoplasm of other organs and systems
CPT/HCPCS: 10084

== ENCOUNTER 2017-11-04 09:24 | Emergency (ER) | payer OTHER ==
[~2017-11-04] VITALS: Ht 175.3 cm; Wt 106.6 kg
[2017-11-04 09:24] VITALS: BP 129/98
[~2017-11-04 09:24] MED LIST changes: +HYDROCODON-ACE1 EAC8 PO
== END 2017-11-04 10:17 | disposition home or self-care (01) ==
LOC: ER 09:24
DX: S51.801A Unspecified open wound of right forearm, initial encounter (principal); I48.91 Unspecified atrial fibrillation; I12.9 Hypertensive chronic kidney disease with stage 1 through stage 4 chronic kidney disease, or unspecified chronic kidney disease; N18.3 Chronic kidney disease, stage 3 (moderate); G62.9 Polyneuropathy, unspecified; G47.30 Sleep apnea, unspecified; E03.9 Hypothyroidism, unspecified; M19.90 Unspecified osteoarthritis, unspecified site; Z87.01 Personal history of pneumonia (recurrent); Z95.5 Presence of coronary angioplasty implant and graft; Z91.041 Radiographic dye allergy status; Z88.8 Allergy status to other drugs, medicaments and biological substances; Z87.891 Personal history of nicotine dependence; W18.39XA Other fall on same level, initial encounter; Y93.89 Activity, other specified; Y92.89 Other specified places as the place of occurrence of the external cause; Y99.8 Other external cause status

== ENCOUNTER 2017-11-07 13:46 | Emergency (ER) | payer OTHER ==
[~2017-11-07] VITALS: Ht 182.9 cm; Wt 108.9 kg
[2017-11-07 15:00] LABS: ABSOLUTE NEUTROPHILS 6.8 thou/uL (1.4-8.2); BASOPHILS 0.2 % (0.0-2.0); HEMATOCRIT 35.3 % (42.0-52.0); HEMOGLOBIN 12.2 gm/dL (14.0-18.0); LYMPHOCYTES 8.5 % (24.0-44.0); MCH 31.9 pg (26.0-34.0); MCHC 34.5 g/dL (28.0-37.0); MCV 92.3 fL (80.0-100.0); MONOCYTES 7.8 % (1.0-8.0); PLATELET COUNT 138 thou/uL (150-400); POLYS 83.5 % (36.0-66.0); RBC 3.83 mil/uL (4.50-6.00); RDW 13.8 % (10.5-14.5); WBC 8.1 thou/uL (4.0-11.0)
[2017-11-07 15:14] LABS: CALCIUM 8.8 mg/dL (8.5-10.1); CREATININE 2.4 mg/dL (0.7-1.3); POTASSIUM 4.4 mmol/L (3.5-5.1)
[2017-11-07 15:27] LABS: URINE BILIRUBIN NEGATIVE (Negative); URINE BLOOD NEGATIVE (Negative); URINE CLARITY CLEAR; URINE COLOR YELLOW; URINE GLUCOSE-RANDOM* NEGATIVE (Negative); URINE KETONES NEGATIVE (Negative); URINE LEUKOCYTES-REFLEX NEGATIVE (Negative); URINE NITRITE-REFLEX NEGATIVE (Negative); URINE PROTEIN (DIPSTICK) TRACE (Negative); URINE UROBILINOGEN 0.2 E.U./dl (0.2-1.0)
[2017-11-07] MEDS ORDERED: SENNA8.6 MG PO (15:33)
[2017-11-07] MEDS ORDERED: HYDROCODONE-AP1 EAC6 PO (15:33)
[2017-11-07 16:29] VITALS: BP 152/86
== END 2017-11-07 16:30 | disposition home or self-care (01) ==
LOC: ER 13:46
PROVIDERS: Physician Assistant
DX: G89.29 Other chronic pain (principal); M54.9 Dorsalgia, unspecified; I12.9 Hypertensive chronic kidney disease with stage 1 through stage 4 chronic kidney disease, or unspecified chronic kidney disease; N18.3 Chronic kidney disease, stage 3 (moderate); J44.9 Chronic obstructive pulmonary disease, unspecified; I48.91 Unspecified atrial fibrillation; E78.5 Hyperlipidemia, unspecified; M19.90 Unspecified osteoarthritis, unspecified site; E03.9 Hypothyroidism, unspecified; Z96.651 Presence of right artificial knee joint; Z95.0 Presence of cardiac pacemaker; Z98.62 Peripheral vascular angioplasty status; Z95.1 Presence of aortocoronary bypass graft; Z91.040 Latex allergy status; Z87.891 Personal history of nicotine dependence

== ENCOUNTER 2017-11-15 14:26 | Inpatient (IN) | payer OTHER ==
[~2017-11-15] VITALS: Ht 182.9 cm; Wt 107.0 kg
--- NOTE | ~2017-11-15 | HC ---
[facility] [place] [address] CONSULTATION Name: POLO VALIENTE Room #: 421-P [facility] IN M.R.#: [id number] Admission: 11/15/17 Attend Phys: Baljinder Palumbo DO Discharge: 11/19/17 Date of : 30 Report #: [id number] THIS REPORT FOR: //name// CC: Baljinder Jimenez DATE OF SERVICE: 11/18/2017 HISTORY OF PRESENT ILLNESS: The patient is an 87-year-old white male admitted with near syncopal episodes with 4 falls in the last 6 months. He has had recurrent near syncope, orthostatic hypotension, chronic renal insufficiency, creatinine 2.1. He also has multiple myeloma. He has been followed by Cardiology, Nephrology, geriatrics, Hematology as well as Internal Medicine. They have restarted his Lasix on a low dose and is being monitored closely. We are seeing him in rehabilitation medicine consultation. PAST MEDICAL HISTORY: Peripheral neuropathy. He had an episode of encephalopathy, warranting an acute rehab stay back in 01/2017. He has a permanent pacemaker. Chronic renal insufficiency as noted above. He has had coronary artery bypass grafting x 2, subdural hematoma in 2003, prior history of pneumonia, hypertension, and COPD. There is a note of some dementia, nevertheless living in the community, and obstructive sleep apnea. ALLERGIES: INCLUDE LATEX AND ALBUTEROL. SOCIAL HISTORY: Lives with his in a house, two steps in, 13 inside. He tends to stay on the main level and no longer goes down the steps. He uses a walker. REVIEW OF SYSTEMS: No current complaints of chest pain, shortness of breath or abdominal discomfort. He has definite concern with standing up with concern regarding dizziness and has issues regarding the frequent falls. No focal extremity pain complaints. No headache. PHYSICAL EXAMINATION: GENERAL: An 87-year-old white male in no obvious distress. He is alert. HEENT: Appeared to be benign. VITAL SIGNS: Temperature is 98.4, pulse 69, respirations 16, blood pressure 142/74. Facies are symmetric. Follows basic 1 step commands. EXTREMITIES: Functional range of motion of both upper extremities. Strength is grade 4 to 4-/5. DTRs are trace to 1. Lower extremities, no focal calf swelling, functional range of motion, strength is grade 4- to 4/5. DTRs are trace to 1. He is contact guard assistance for sit to stand and ambulate short distances with a front-wheeled walker with contact guard assistance. He is needing assistance with basic ADLs. [address] [address] CONSULTATION Name: POLO VALIENTE Room #: 421-P [facility] IN M.R.#: [id number] Admission: 11/15/17 Attend Phys: Baljinder Palumbo DO Discharge: 11/19/17 Date of : 30 Report #: [id number] ASSESSMENT: An 87-year-old white male with the following problem list: 1. Recurrent near syncope with orthostatic hypotension. 2. Frequent falls. 3. Renal insufficiency with nephrology involved. 4. Multiple myeloma. 5. History of permanent pacemaker with cardiology involved. 6. History of paroxysmal atrial fibrillation. 7. Obstructive sleep apnea. 8. Coronary artery disease, clinically stable. 9. Past history of subdural hematoma in 2003. 10. Hypertension. 11. History of pulmonary embolism in 2007. PLAN: The patient is a candidate for an acute in-hospital inpatient rehabilitation stay. The goal is to maximize his functional independence with transfers, mobility, ADLs and to closely monitor his multiple medical comorbidities. He has multiple design studio consultant physicians that are involved and the goal is to further improve his functional independence, stability, decrease the incidence of falls, and fine tune his medical management. The multiple design studio consultant physicians could continue to follow while he is on the in-hospital inpatient rehabilitation kumari. We can plan on transfer when medically cleared. Thank you for asking us to assist in this patient's care. <ELECTRONICALLY SIGNED> By: Monty Tello MD 11/20/17 1124 1631 1947 Monty Tello MD /[facility]
--- NOTE | ~2017-11-15 | HC ---
[facility] [place] [address] CONSULTATION Name: POLO VALIENTE Room #: 421-P ADM IN M.R.#: [id number] Admission: 11/15/17 Attend Phys: Baljinder Palumbo DO Discharge: Date of : 30 Report #: [id number] THIS REPORT FOR: //name// CC: Baljinder Jimenez REASON FOR CONSULTATION: Dizziness. HISTORY OF PRESENT ILLNESS: The patient is an 87-year-old gentleman who is a patient of Dr. Dennys Carver. He has a history of sick sinus syndrome and prior pacemaker implantation. Over the past several weeks, he has had frequent episodes of gait instability and falls. He reports that when he goes from a sitting to standing position becomes very lightheaded and near syncopal. He denies loss of consciousness. He has seen in upwards of 100 mm fluctuation in blood pressures from sitting to standing. He has a history of coronary artery disease with remote bypass in 2000. He has had no chest pain, pressure or ischemic type symptoms. No heart failure symptoms. A permanent pacemaker was placed in 2007. He has been maintained in sinus rhythm on low dose amiodarone. MEDICATIONS: Include potassium 20 mEq daily, atorvastatin 40 mg daily, amiodarone 200 mg daily, Toprol 50 mg daily, Lasix 40 mg as needed, Xopenex. PAST MEDICAL HISTORY: Medical records have been reviewed and include a history of coronary artery disease with bypass in 2000, subdural hematoma in 2003, multiple myeloma, remote pulmonary embolism, spinal stenosis, chronic kidney disease, sleep apnea on nightly CPAP, dyslipidemia, hypertension. SOCIAL HISTORY: Former smoker. , lives with his . FAMILY HISTORY: Unremarkable for premature coronary artery disease. REVIEW OF SYSTEMS: All systems negative except as that noted above. PHYSICAL EXAMINATION: GENERAL: He is a pleasant gentleman in no distress. VITAL SIGNS: Blood pressure is 190/100, heart rate is 65 and regular. HEENT: There are neither xanthelasma, subcutaneous xanthomata, oral mucosal or digital cyanosis or kyphoscoliosis present. CHEST: Clear to auscultation and percussion. CARDIAC: Regular rate and rhythm with normal S1, S2. Jugular venous pressure is not elevated. ABDOMEN: Soft and nontender. EXTREMITIES: With trace edema. Radial pulses are 2+. NEUROLOGIC: He is alert with a nonfocal exam. LABORATORY DATA: Sodium 142, potassium 4.4, creatinine 2.0, which is at or near his baseline. Troponin 0. White count 6.4, hemoglobin 11, hematocrit 34, [place] [address] CONSULTATION Name: POLO VALIENTE AYSHA Room #: 421-P [facility] IN M.R.#: [id number] Admission: 11/15/17 Attend Phys: Baljinder Palumbo DO Discharge: Date of : 30 Report #: [id number] platelet count 111. Head CT shows sinusitis. V/Q scan is low probability for pulmonary embolism. Carotid duplex demonstrates no hemodynamically significant stenoses. Chest x-ray demonstrates mild atelectasis. EKG: Atrial pacing sinus rhythm. IMPRESSION: 1. Recurrent near syncope consistent with orthostatic hypotension. 2. Coronary artery disease, clinically stable. 3. Paroxysmal atrial fibrillation, maintained in sinus rhythm; prior dual-chamber pacemaker implantation. 4. Sleep apnea, on continuous positive airway pressure. 5. Chronic kidney disease. RECOMMENDATIONS: 1. Continued use of low dose metoprolol and amiodarone. 2. Lower extremity support stockings. 3. Reassess orthostatic vital signs. A primary rhythm abnormality to explain these episodes is not suggested. A fairly recent echocardiogram has demonstrated normal left ventricular systolic function with biatrial enlargement, interval development of structural heart disease is not suggested. Thank you for asking me to participate in the patient's care. <ELECTRONICALLY SIGNED> By: Brian Noyola MD, FACC 11/19/17 0858 1101 09 Brian Noyola MD, FACC /nt
--- NOTE | ~2017-11-15 | HC ---
[facility] [place] [address] CONSULTATION Name: POLO VALIENTE Room #: 421-P ADM IN M.R.#: [id number] Admission: 11/15/17 Attend Phys: Baljinder Palumbo DO Discharge: Date of : 30 Report #: [id number] THIS REPORT FOR: //name// CC: Baljinder Jimenez REASON FOR PRESENTATION: Lightheadedness and syncopal episode. REASON FOR CONSULTATION: CKD with a baseline creatinine of around 2. HISTORY OF PRESENT ILLNESS: This is an 87-year-old with CKD, baseline creatinine of around 2. He is known to have chronic vertigo. He is also known to have multiple other comorbid conditions including coronary artery disease status post CABG, CVA, subdural hematoma with myeloma diagnosed back in 2007. He sees Dr. Mendez in my clinic. He presented with the above-mentioned symptoms. He was admitted for further evaluation and management. Presentation to the Emergency Room, his creatinine was 2.3 and has trended down to his baseline of around 2.0. He feels okay this morning. PAST MEDICAL HISTORY: Extensive and includes the followin. Coronary artery disease. 2. Status post CABG. 3. CKD. 4. Myeloma. 5. COPD. 6. Sick sinus syndrome. 7. Permanent pacemaker. 8. Obstructive sleep apnea. 9. AFib. 10. Osteoarthritis. 11. Hypothyroidism. 12. Subdural hematoma. PAST SURGICAL HISTORY: 1. CABG. 2. Right knee replacement. 3. Right foot surgery. 4. Pacemaker. 5. Basal cell carcinoma removal. MEDICATIONS: 1. Potassium. 2. Gabapentin. 3. Amiodarone. 4. Pamidronate. 5. Furosemide. [facility] [address] [place] [address] CONSULTATION Name: POLO VALIENTE Room #: 421-P [facility] IN M.R.#: [id number] Admission: 11/15/17 Attend Phys: Baljinder Palumbo DO Discharge: Date of : 30 Report #: [id number] ALLERGIES: LATEX AND ALBUTEROL. REVIEW OF SYSTEMS: GENERAL: No fever or chills, but significant for weakness. CARDIOVASCULAR: No chest pain or palpitation. PULMONARY: No cough or hemoptysis. NEUROLOGIC: As per the history of present illness. GASTROINTESTINAL: Decreased p.o. intake, but no other major issues. GENITOURINARY: No frequency, no urgency. FAMILY HISTORY: Significant for hypertension. PHYSICAL EXAMINATION: GENERAL: He is alert, oriented, in no apparent distress. VITAL SIGNS: Blood pressure 144/67. HEAD AND NECK: No jugular venous distention. CHEST: Clear to auscultation. CARDIOVASCULAR: Regular with no rub. ABDOMEN: Soft, nontender. LOWER EXTREMITIES: No edema. LABORATORY VALUES: Reviewed. Creatinine is at baseline. IMAGING: Chest x-ray: Reviewed, no acute finding. CT head: Negative. Carotid Doppler: Negative. ASSESSMENT, IMPRESSION, PLAN: 1. Chronic kidney disease. 2. Syncope. 3. Myeloma. 4. History of coronary artery bypass grafting. 5. History of pulmonary emboli in the past. 6. Stable from the renal side. Creatinine is at baseline. Continue with the current medications. 7. Strict input and output. 8. Avoid nephrotoxins. 9. Workup in progress for his syncope. <ELECTRONICALLY SIGNED> By: Elicia Walker MD 11/17/1758 5 20 Elicia Walker MD /nt
--- NOTE | ~2017-11-15 | HC ---
[facility] [place] [address] CONSULTATION Name: POLO VALIENTE Room #: 421-P ADM IN M.R.#: [id number] Admission: 11/15/17 Attend Phys: Baljinder Palumbo DO Discharge: Date of : 30 Report #: [id number] THIS REPORT FOR: //name// CC: Baljinder Jimenez HISTORY OF PRESENT ILLNESS: The patient is well known to me from previous diagnosis and treatment of IgG lambda multiple myeloma. He was admitted emergently with complaints of dizziness and lightheadedness over the last few days with associated syncopal episode. His myeloma history dates to 2007 when he was diagnosed with myeloma and received a year of thalidomide. He declined stem cell transplant and has continued with an unmaintained remission/indolent disease. He had paraprotein studies when I saw him in July of 2017 along with a PET scan that showed no evidence of myeloma. PAST MEDICAL HISTORY: Also significant for previous coronary artery disease with bypass grafting in 2000. Subdural hematoma in 2003. Has had longstanding spinal stenosis and chronic kidney disease. He has sleep apnea with nightly CPAP, dyslipidemia and medically managed hypertension. SOCIAL HISTORY: He is a reformed smoker. He is , is not currently in attendance. FAMILY HISTORY: Negative for myeloma. MEDICATIONS: As listed on the MFR. ALLERGIES: None known. REVIEW OF SYSTEMS: Negative for any sweats, chills, fevers, weight loss, recently detected no new masses. He has chronic back pain, but this is stable. Remaining of system review is as in the history of present illness. PHYSICAL EXAMINATION: GENERAL: Shows an alert white male who was awakened. HEENT: Normocephalic except for eyeglasses. CHEST: Clear. CARDIOVASCULAR: Normal S1, S2. ABDOMEN: No organomegaly or mass. EXTREMITIES: No clubbing, cyanosis, edema. PSYCHIATRIC: Confused. NEUROLOGIC: No focal localizing signs. LYMPHATICS: No suspicious adenopathy. LABORATORY STUDIES: Reviewed here show no current worrisome anemia. He has [facility] [address] [place] [address] CONSULTATION Name: POLO VALIENTE [facility] Room #: 421-P ADM IN M.R.#: [id number] Admission: 11/15/17 Attend Phys: Baljinder Palumbo DO Discharge: Date of : 30 Report #: [id number] chronically elevated serum creatinine. ASSESSMENT: Status post multiple myeloma. PLAN: The patient has ongoing quarterly followups and receives Aredia on intermittent basis. This was given in October of this year and previously in December of 2016. Nothing present to suggest his current complaints are related to his previous myeloma diagnosis. Thanks for informing us of his hospitalization, allowing me to participate in his care. <ELECTRONICALLY SIGNED> By: Hue Solomon MD 11/18/17 1450 1519 1739 Hue Solomon MD /nt
--- NOTE | ~2017-11-15 | 2DMMODE ---
[facility] [address] [place] [address] 2 D/M-MODE ECHOCARDIOGRAM Name: POLO VALIENTE AYSHA Room #: 421-P ADM IN M.R.#: [id number] Admission: 11/15/17 Attend Phys: Baljinder Palumbo, Discharge: Date of : 30 Date of Service: 11/17/17 1018 Report #: [id number] THIS REPORT FOR: //name// APPROVED REPORT Study performed: 11/17/2017 08:13:31 EXAM: Comprehensive 2D, Doppler, and color-flow Echocardiogram Patient Location: Bedside Room #: 421 Status: routine BSA: 2.28 HR: 66 bpm BP: 125/73 mmHg Other Information Study Quality: Fair Indications COPD Pacemaker Syncope 2D Dimensions RVDd: 39.48 mm LVEF(%): 61.91 (>50%) IVSd: 16.78 (7-11mm) LVOT Diam: 26.33 (18-24mm) LVDd: 46.31 mm PWd: 16.65 (7-11mm) Ascending Ao: 37.12 (22-36mm) LVDs: 30.92 (25-40mm) Aortic Root: 33.97 mm IVC: 17.00 mm Polk's LVEF: 61.91 % Volumes Left Atrial Volume (Systole) Single Plane 4CH: 74.84 mL Single Plane 2CH: 57.99 mL LA ESV Index: 36.00 mL/m2 Aortic Valve AoV Peak Deepak.: 1.49 m/s AO Peak Gr.: 8.91 mmHg LVOT Max P.25 mmHg LVOT Max V: 0.75 m/s LOLLY Vmax: 2.73 cm2 Mitral Valve E/A Ratio: 0.8 [facility] [address] [place] [address] 2 D/M-MODE ECHOCARDIOGRAM Name: STEFFANIEPOLO AYSHA Room #: 421-P [facility] IN ..#: [id number] Admission: 11/15/17 Attend Phys: Baljinder Palumbo, Discharge: Date of : 30 Date of Service: 11/17/17 1018 Report #: [id number] MV Decel. Time: 275.04 ms MV E Max Deepak.: 0.55 m/s MV A Deepak.: 0.72 m/s MV PHT: 79.76 ms IVRT: 203.00 ms Pulmonary Valve PV Peak Deepak.: 0.85 m/s PV Peak Gr.: 2.86 mmHg Pulmonary Vein P Vein S: 0.43 m/s P Vein A: 0.26 m/s P Vein D: 0.27 m/s P Vein A Dur.: 124.6 msec P Vein S/D Ratio: 1.59 Tricuspid Valve TR Peak Deepak.: 2.80 m/s TR Peak Gr.: 31.34 mmHg PA Pressure: 36.00 mmHg Left Ventricle The left ventricle is normal size. Moderate concentric left ventricular hypertrophy. The left ventricular systolic function is normal. The left ventricular ejection fraction is within the normal range. LVEF is 55-60%. Grade I - abnormal relaxation pattern. Right Ventricle The right ventricle is normal size. The right ventricular systolic function is normal. Pacemaker lead is present in the right ventricle. Atria Left atrium is dilated. Right atrium is dilated. Aortic Valve The aortic valve is normal in structure. Trace aortic regurgitation. There is no aortic valvular stenosis. Mitral Valve The mitral valve is normal in structure. There is mitral annular calcification. Mild mitral regurgitation. No evidence of mitral valve stenosis. Tricuspid Valve The tricuspid valve is normal in structure. There is mild tricuspid regurgitation. Estimated PAP 36 mmHg. There is mild pulmonary hypertension. [address] [address] 2 D/M-MODE ECHOCARDIOGRAM Name: POLO VALIENTE AYSHA Room #: 421-P [facility] IN ..#: [id number] Admission: 11/15/17 Attend Phys: Baljinder Palumbo, Discharge: Date of : 30 Date of Service: 11/17/17 1018 Report #: [id number] Pulmonic Valve The pulmonary valve is normal in structure. There is no pulmonic valvular regurgitation. Great Vessels The aortic root is normal in size. IVC is normal in size and collapses >50% with inspiration. Pericardium Trace anterior pericardial effusion. <Conclusion> The left ventricle is normal size. Moderate concentric left ventricular hypertrophy. LVEF is 55-60%. Grade I - abnormal relaxation pattern. The right ventricle is normal size. Left atrium is dilated. Right atrium is dilated. There is no aortic valvular stenosis. Mild mitral regurgitation. The mitral valve is normal in structure. There is mitral annular calcification. There is mild tricuspid regurgitation. Estimated PAP 36 mmHg. There is mild pulmonary hypertension. The aortic root is normal in size. Trace anterior pericardial effusion. <ELECTRONICALLY SIGNED> By: Dennys Carver MD, FACC 11/17/17 1018 1018 1018 Dennys Carver MD, FACC /INF
--- NOTE | ~2017-11-15 | EKG ---
[place] [address] [facility] [place] [address] ELECTROCARDIOGRAM REPORT Name: POLO VALIENTE Room #: 421-P ADM IN M.R.#: [id number] Admission: 11/15/17 Attend Phys: Baljinder Palumbo DO Discharge: Date of : 30 Report #: [id number] THIS REPORT FOR: //name// [facility] ED Test Date: 2017-11-15 Test Time: 14:26:14 Pat Name: POLO VALIENTE Department: Room: 421 Gender: M Mutuel Department Manager: MAKI : 1930 Requested By: Dai Palumbo Order Number: [id number] MD: Brian Noyola Measurements Intervals Mason Rate: 68 P: LA: QRS: -49 QRSD: 146 T: 98 QT: 431 QTc: 459 Interpretive Statements Sinus rhythm with atrial pacing Occasional intrinsic depolarizations Left bundle branch block Compared to ECG 07/07/2017 12:44:14 Atrial pacing is now present Electronically Signed On 11-16-2017 14:24:35 CDT by Brian Noyola [email or web address] <ELECTRONICALLY SIGNED> By: Brian Noyola MD, [facility] 11/16/17 1424 1426 1426 Brian Noyola MD, [facility] /EPI
[~2017-11-15 14:26] MED LIST changes: +HYDROCODONE-AP1 EAC6 PO; +SENNA8.6 MG PO
[2017-11-15 14:28] VITALS: BP 137/65
[2017-11-15 14:54] LABS: ABSOLUTE NEUTROPHILS 6.2 thou/uL (1.4-8.2); BASOPHILS 0.4 % (0.0-2.0); HEMOGLOBIN 13.2 gm/dL (14.0-18.0); LYMPHOCYTES 21.5 % (24.0-44.0); MCH 31.4 pg (26.0-34.0); MCHC 33.8 g/dL (28.0-37.0); MCV 92.7 fL (80.0-100.0); MONOCYTES 10.4 % (1.0-8.0); PLATELET COUNT 127 thou/uL (150-400); POLYS 67.7 % (36.0-66.0); RDW 13.6 % (10.5-14.5); WBC 9.1 thou/uL (4.0-11.0)
[2017-11-15 15:01] LABS: ANION GAP 6 mmol/L (7-16); BUN 31 mg/dL (7-18); CALCIUM 8.5 mg/dL (8.5-10.1); CHLORIDE 105 mmol/L (98-107); CO2 27 mmol/L (21-32); CREATININE 2.3 mg/dL (0.7-1.3); GLUCOSE 122 mg/dL (74-106); POTASSIUM 3.7 mmol/L (3.5-5.1); SODIUM 138 mmol/L (136-145)
[2017-11-15 15:10] LABS: ALBUMIN 2.8 g/dL (3.4-5.0); SGOT 24 U/L (15-37); SGPT 25 U/L (30-65); TOTAL BILIRUBIN 0.6 mg/dL (<0.1-1.0); TROPONIN-I < 0.04 ng/mL (<0.06)
[2017-11-15] MEDS ORDERED: LEXAPRO 10 MG T10 M2 PO (16:03)
[2017-11-15 16:19] LABS: INR 1.2; PROTIME 11.9 Seconds (9.3-11.4)
[2017-11-15 16:30] LABS: URINE BILIRUBIN NEGATIVE (Negative); URINE BLOOD NEGATIVE (Negative); URINE CLARITY CLEAR; URINE COLOR YELLOW; URINE GLUCOSE-RANDOM* NEGATIVE (Negative); URINE KETONES NEGATIVE (Negative); URINE LEUKOCYTES NEGATIVE (Negative); URINE NITRITE NEGATIVE (Negative); URINE PROTEIN (DIPSTICK) 1+ (Negative); URINE UROBILINOGEN 0.2 E.U./dl (0.2-1.0)
[2017-11-15 16:41] LABS: AMORPHOUS URATES Few /LPF (None Seen); BACTERIA None Seen /HPF (None Seen); HYALINE CASTS 0-3 Few /LPF (None Seen); MUCUS >6 Heavy strn/LPF (None Seen); SQUAMOUS 0-3 Few /LPF (0-3); URINE RBC 0-2 Rare /HPF (0-2); URINE WBC 0-5 Rare /HPF (0-5)
[2017-11-15 18:04] VITALS: BP 150/74
[2017-11-15 18:07] VITALS: BP 150/74
[2017-11-15] MEDS ORDERED: LEVALBUTER1.25 MG/0. INH (18:16)
[2017-11-15 19:10] VITALS: BP 135/66
[2017-11-15 23:20] VITALS: BP 125/69
[2017-11-16 04:07] VITALS: BP 144/67
[2017-11-16 06:17] LABS: ABSOLUTE NEUTROPHILS 4.3 thou/uL (1.4-8.2); BASOPHILS 0.2 % (0.0-2.0); HEMATOCRIT 34.1 % (42.0-52.0); HEMOGLOBIN 11.9 gm/dL (14.0-18.0); LYMPHOCYTES 22.1 % (24.0-44.0); MCH 31.9 pg (26.0-34.0); PLATELET COUNT 111 thou/uL (150-400); POLYS 67.7 % (36.0-66.0); RBC 3.74 mil/uL (4.50-6.00); RDW 13.3 % (10.5-14.5); WBC 6.4 thou/uL (4.0-11.0)
[2017-11-16 06:24] LABS: POTASSIUM 4.4 mmol/L (3.5-5.1)
[2017-11-16 08:48] VITALS: BP 192/101
[2017-11-16 11:20] VITALS: BP 135/71
[2017-11-16 20:48] VITALS: BP 116/70
[2017-11-16 23:32] VITALS: BP 126/78
[2017-11-17 04:31] LABS: ABSOLUTE NEUTROPHILS 4.3 thou/uL (1.4-8.2); BASOPHILS 0.4 % (0.0-2.0); HEMATOCRIT 34.5 % (42.0-52.0); HEMOGLOBIN 11.9 gm/dL (14.0-18.0); MCH 31.5 pg (26.0-34.0); MCHC 34.4 g/dL (28.0-37.0); MCV 91.7 fL (80.0-100.0); MONOCYTES 9.3 % (1.0-8.0); PLATELET COUNT 126 thou/uL (150-400); POLYS 62.3 % (36.0-66.0); RBC 3.77 mil/uL (4.50-6.00); RDW 13.4 % (10.5-14.5); WBC 6.9 thou/uL (4.0-11.0)
[2017-11-17 04:49] VITALS: BP 140/84
[2017-11-17 05:01] VITALS: BP 125/73
[2017-11-17 05:08] LABS: ALBUMIN 2.5 g/dL (3.4-5.0); CREATININE 2.1 mg/dL (0.7-1.3); PHOSPHORUS 3.8 mg/dL (2.5-4.9)
[2017-11-17 09:00] VITALS: BP 121/74
[2017-11-17 16:00] VITALS: BP 142/83
[2017-11-17 16:55] VITALS: BP 111/65
[2017-11-17 19:40] VITALS: BP 162/86
[2017-11-18 03:45] VITALS: BP 135/75
[2017-11-18 05:11] LABS: CALCIUM 8.4 mg/dL (8.5-10.1); CREATININE 2.2 mg/dL (0.7-1.3); POTASSIUM 3.7 mmol/L (3.5-5.1)
[2017-11-18 05:16] LABS: ABSOLUTE NEUTROPHILS 6.7 thou/uL (1.4-8.2); BASOPHILS 0.3 % (0.0-2.0); HEMATOCRIT 36.3 % (42.0-52.0); HEMOGLOBIN 12.4 gm/dL (14.0-18.0); MCH 31.5 pg (26.0-34.0); MCHC 34.2 g/dL (28.0-37.0); MONOCYTES 9.3 % (1.0-8.0); PLATELET COUNT 154 thou/uL (150-400); POLYS 66.4 % (36.0-66.0); RBC 3.94 mil/uL (4.50-6.00); RDW 13.4 % (10.5-14.5); WBC 10.1 thou/uL (4.0-11.0)
[2017-11-18 07:50] VITALS: BP 142/74
[2017-11-18 15:50] VITALS: BP 156/75
[2017-11-18 20:48] VITALS: BP 137/66
[2017-11-19 04:16] VITALS: BP 130/63
[2017-11-19 06:04] LABS: ABSOLUTE NEUTROPHILS 6.4 thou/uL (1.4-8.2); BASOPHILS 0.3 % (0.0-2.0); HEMOGLOBIN 12.5 gm/dL (14.0-18.0); LYMPHOCYTES 22.8 % (24.0-44.0); MCH 31.1 pg (26.0-34.0); MCHC 33.8 g/dL (28.0-37.0); MCV 91.8 fL (80.0-100.0); MONOCYTES 10.3 % (1.0-8.0); PLATELET COUNT 163 thou/uL (150-400); POLYS 66.6 % (36.0-66.0); RBC 4.03 mil/uL (4.50-6.00); RDW 13.2 % (10.5-14.5); WBC 9.6 thou/uL (4.0-11.0)
[2017-11-19 06:27] LABS: CALCIUM 8.6 mg/dL (8.5-10.1); CREATININE 2.3 mg/dL (0.7-1.3); POTASSIUM 3.4 mmol/L (3.5-5.1)
[2017-11-19 08:05] VITALS: BP 159/79
[2017-11-19] MEDS ORDERED: K-DUR 20 MEQ T20 MEQ PO (08:57)
[2017-11-19] MEDS ORDERED: MIDODRINE HCL 55 M1 PO (08:57)
[2017-11-19] MEDS ORDERED: PREDNISONE 10 M10 MG PO (08:58)
[2017-11-19] MEDS ORDERED: SENNA8.6 MG PO (08:58)
[2017-11-19 09:51] VITALS: BP 159/79
== END 2017-11-19 15:28 | DRG 682 ==
LOC: ER 14:26 → 4E 17:33 → EROBS 17:33 → 4E 18:24
PROVIDERS: Family Medicine; Hospitalist; Physician Assistant
DX: N17.0 Acute kidney failure with tubular necrosis (principal); E43 Unspecified severe protein-calorie malnutrition; I95.1 Orthostatic hypotension; F03.90 Unspecified dementia, unspecified severity, without behavioral disturbance, psychotic disturbance, mood disturbance, and anxiety; J44.9 Chronic obstructive pulmonary disease, unspecified; Z96.651 Presence of right artificial knee joint; E78.5 Hyperlipidemia, unspecified; E03.9 Hypothyroidism, unspecified; N18.3 Chronic kidney disease, stage 3 (moderate); I12.9 Hypertensive chronic kidney disease with stage 1 through stage 4 chronic kidney disease, or unspecified chronic kidney disease; I49.5 Sick sinus syndrome; I25.10 Atherosclerotic heart disease of native coronary artery without angina pectoris; I48.0 Paroxysmal atrial fibrillation; G47.33 Obstructive sleep apnea (adult) (pediatric); G62.9 Polyneuropathy, unspecified; Z95.810 Presence of automatic (implantable) cardiac defibrillator; Z86.711 Personal history of pulmonary embolism; Z95.5 Presence of coronary angioplasty implant and graft; Z98.42 Cataract extraction status, left eye; Z98.41 Cataract extraction status, right eye; Z95.1 Presence of aortocoronary bypass graft; Z86.73 Personal history of transient ischemic attack (TIA), and cerebral infarction without residual deficits; Z87.891 Personal history of nicotine dependence; Z79.899 Other long term (current) drug therapy; Z88.8 Allergy status to other drugs, medicaments and biological substances; Z91.040 Latex allergy status; Z68.32 Body mass index [BMI] 32.0-32.9, adult
CPT/HCPCS: 10084

== ENCOUNTER 2017-11-18 17:30 | Inpatient (IN) | payer OTHER ==
[~2017-11-18] VITALS: Ht 188 cm; Wt 100.4 kg
--- NOTE | ~2017-11-18 | HC ---
[facility] [place] [address] [address] CONSULTATION Name: POLO VALIENTE Room #: 513-P ADM IN M.R.#: [id number] Admission: 11/19/17 Attend Phys: Monty Tello MD Discharge: Date of : 30 Report #: [id number] THIS REPORT FOR: //name// CC: [facility] DATE OF SERVICE: 11/20/2017 REFERRING PHYSICIAN: Dr. Tello. REASON FOR REFERRAL: Cough. HISTORY OF PRESENT ILLNESS: The patient is an 87-year-old white male who was admitted to the rehab for conditioning. The patient has developed a cough. A pulmonary consultation was requested. The patient was admitted on 11/15/2017, for near syncopal episode and weakness. He is currently at rehab. The patient states that for the last 4 days, he has been developing increasing cough that is nonproductive. He does admit that he has a mild, chronic cough in the past. Otherwise, denies any fever, night sweats or chills, chest pain or productive cough. PAST MEDICAL HISTORY: Notable for COPD, followed longitudinally by Dr. Hardy; history of falls with chest trauma resulting in rib fractures in 2014, atrial fibrillation, sleep apnea, on CPAP; dementia, chronic kidney disease, coronary artery disease with prior stent placement, coronary artery bypass surgery in 2010, history of CVA in 2001, subdural hematoma in 2003, multiple myeloma diagnosed in 2007, hypertension, hyperlipidemia, and past history pulmonary embolus in 2007. PAST SURGICAL HISTORY: As mentioned above including cataract surgery, back surgery, right knee replacement, and pacemaker placement. ALLERGIES: Intolerance to ALBUTEROL, which causes tachycardia. LATEX causes severe crump. CURRENT MEDICATIONS: Reviewed. FAMILY HISTORY: Noncontributory. SOCIAL HISTORY: The patient has smoked in the past, but quit several years ago. Denies any alcohol use. REVIEW OF SYSTEMS: As mentioned above, otherwise 10-point system review [facility] [address] [place] [address] CONSULTATION Name: POLO VALIENTE [facility] Room #: 513[facility] [place] [facility].#: [id number] Admission: 11/19/17 Attend Phys: Monty Tello MD Discharge: Date of : 30 Report #: [id number]. PHYSICAL EXAMINATION: GENERAL: He is awake, alert, in no acute distress. VITAL SIGNS: Temperature is 98.6 degrees Fahrenheit, pulse is 74, respiratory rate is 18, blood pressure 133/61 mmHg, saturation 94%. HEENT: Normocephalic, atraumatic. NECK: Supple, without lymphadenopathy or thyromegaly. CHEST: Breath sounds are fair due to poor effort. Few scattered crackles. No wheezes. CARDIOVASCULAR: Normal S1, S2. There are no murmurs or gallops. There is no JVD. There is no carotid bruit. Pulses are 2+/4+ bilaterally. ABDOMEN: Soft, nontender, no organomegaly or masses felt. GENITOURINARY: Deferred. RECTAL: Deferred. EXTREMITIES: There is no edema, cyanosis or clubbing. LABORATORY DATA: Chest x-ray shows borderline cardiomegaly with mild chronic interstitial infiltrates, otherwise no consolidation or effusion seen. Echocardiogram shows a moderate concentric left ventricular hypertrophy, ejection fraction 55%, estimated pulmonary artery pressure of 36, otherwise no significant valvular heart disease. Sodium 141, potassium 3.7, chloride 108, CO2 of 26, BUN is 31, creatinine is 2.2. Hemoglobin 12, WBC 11,900, and platelets are normal. IMPRESSION: 1. Nonproductive cough in this 87-year-old white male with history of chronic obstructive pulmonary disease, obstructive sleep apnea, probable reflux disease. It appears the patient has an element of mild chronic cough, which has worsened in the last 4 days. He states that he has taken antitussives in the past, which has helped. The patient has multiple risk factors for cough including probable reflux disease, chronic obstructive pulmonary disease. He does not appear to have pneumonia. 2. Obstructive sleep apnea, on home CPAP. 3. Chronic obstructive pulmonary disease, appears to be clinically stable. 4. Chronic kidney disease, stage 3. 5. Permanent atrial fibrillation. 6. Coronary artery disease, status post past coronary artery bypass surgery. 7. Generalized weakness and debility, in rehab. 8. History of multiple myeloma. RECOMMENDATION: The patient will benefit from ongoing bronchodilator therapy for his COPD. Continue CPAP use for his THAO. It appears that his cough may be chronic. I will try antitussives for now. I do not think he needs pulse steroid therapy for his COPD at this time. [address] [address] CONSULTATION Name: POLO VALIENTE Room #: 513-P ADM IN M.R.#: [id number] Admission: 11/19/17 Attend Phys: Monty Tello MD Discharge: Date of : 30 Report #: [id number] Antireflux therapy would also be beneficial. Thank you for this consultation. <ELECTRONICALLY SIGNED> By: Kenny Christopher MD 11/26/17 1617 1506 1554 Kenny Christopher MD /nt
--- NOTE | ~2017-11-18 | PLAN ---
[facility] [place] [address] REHAB UNIT PLAN OF CARE Name: POLO VALIENTE Room #: 513-P [facility] IN M.R.#: [id number] Admission: 11/19/17 Attend Phys: Monty Tello MD Discharge: 11/28/17 Date of : 30 Report #: [id number] THIS REPORT FOR: //name// CC: Monty Tello [facility] DATE OF SERVICE: 11/21/2017 PROGRESS NOTE AND OVERALL PLAN OF CARE The patient is seen back today in followup. He is in no distress. Last recorded temperature is 98.1, pulse 67, respirations 20, blood pressure 129/62. He is alert. Still notes some dizziness if he gets up too quick. No focal calf swelling. Transfers are mod assist, gait, max assist 10 feet, 4-wheeled walker. In occupational therapy, lower body dressing, mod assist. ASSESSMENT: 1. Recurrent near syncope with orthostatic hypotension. 2. Frequent falls. 3. Renal insufficiency. 4. Multiple myeloma. 5. History of permanent pacemaker with cardiology involved. 6. Obstructive sleep apnea. 7. Coronary artery disease. 8. Past history of a subdural hematoma in 2003. 9. Hypertension. 10. History of pulmonary embolism in 2007. He has had some difficulty tolerating his physical therapy with Lasix being held, decreasing beta harinder, continuing amiodarone, midodrine t.i.d. Cardiology has been involved. PLAN: The overall plan of care is based on the preadmission screen, post-admission physician evaluation and information garnered from therapy assessments. 1. Estimated length of stay is going to be 7-14 days pending progress and potentially longer if warranted. 2. Medical prognosis is reasonably good. 3. Anticipated interventions includes the interdisciplinary acute inpatient rehabilitation program with PT and OT working with him, rehab nursing assisting regarding medication management, skin care prophylaxis, bowel and bladder issues and nursing education. We will have the multiple color consultant physicians continue to follow with his multiple comorbidities. 4. Anticipated functional outcomes would be for him to improve as far as his strength, endurance, balance, ambulation and decreasing the orthostatic symptomatology and decreasing his chances for falls. [facility] [address] [place] [address] REHAB UNIT PLAN OF CARE Name: POLO VALIENTE Room #: 513-P [facility] IN M.R.#: [id number] Admission: 11/19/17 Attend Phys: Monty Tello MD Discharge: 11/28/17 Date of : 30 Report #: [id number] 5. Discharge destination is could be back home with his to their house. 6. Expected therapy by discipline includes PT and OT 1 and 1-1/2 hours per day each five days a week throughout the duration of the acute inpatient rehabilitation stay. <ELECTRONICALLY SIGNED> By: Monty Tello MD 12/02/17 1030 0923 2155 Monty Tello MD /MCKENZIE
--- NOTE | ~2017-11-18 | HC ---
[facility] [place] [address] CONSULTATION Name: POLO VALIENTE Room #: 513-P [facility] IN M.R.#: [id number] Admission: 11/19/17 Attend Phys: Monty Tello MD Discharge: 11/28/17 Date of : 30 Report #: [id number] THIS REPORT FOR: //name// CC: [facility] DATE OF SERVICE: 11/23/2017 ATTENDING PHYSICIAN: Monty Tello M.D. PRINTING PLATE CLERK: Audi Reese, PhD. CLINICAL PRESENTATION: The patient is an 87-year-old male admitted to the [facility] Rehabilitation Unit for a comprehensive inpatient rehabilitation program to improve functional mobility, activities of daily living and self-care and mental status secondary to deficits from frequent falls and orthostatic hypotension. His diagnoses include renal insufficiency with Nephrology involved, multiple myeloma, history of permanent pacemaker with Cardiology in followup, history of paroxysmal atrial fibrillation, obstructive sleep apnea, coronary artery disease, subdural hematoma in 2003, hypertension and a history of a pulmonary embolism in 2007. The patient was on a rehabilitation unit in 01/2017 from experiencing mental status changes that were associated with a fentanyl patch. The Fentanyl patch is reported to have resulted in confusion and disorientation. 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 Refer to medical records for complete description of his medical condition and history along with medications. Neuropsychological consultation was requested to provide assistance in the assessment of cognitive and emotional status and to provide recommendations and services. Prior to this most recent admission, he was living with his in their home. The patient has 5 biological and 1 step child. This is his second marriage. He has a 10th grade education, but completed a GED while in the . 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 There is no reported history of treatment for depression/anxiety or alcohol/drug abuse. He does not report current use of alcohol. TECHNIQUES UTILIZED: Clinical interview, review of medical records, staff consultation and behavioral observation, mini mental status exam 2 standard version, clock drawing and family interview - son. EXAMINATION FINDINGS: The patient was alert and cooperative with the assessment. He accurately described events surrounding his admission. There [address] [address] CONSULTATION Name: POLO VALIENTE Room #: 513-P [facility] IN .R.#: [id number] Admission: 11/19/17 Attend Phys: Monty Tello MD Discharge: 11/28/17 Date of : 30 Report #: [id number] is no evidence of aphasia. His thoughts are logical and goal oriented. There is no report of auditory or visual hallucinations. He reports intermittent feelings of anxiety and depression. His concerns include the wellbeing of his as well as his recovery. He does not report difficulty with sleep, appetite or energy level. Memory is reported as within normal limits. He reports having been sedentary prior to his hospitalization. The patientdiscontinued driving 1 year ago. He describes problems that are primarily related to multiple falls. The patient describes an amnestic experience after this most recent fall. His performance on the MMSE 2 brief version suggests a mild degree of impairment, primarily in immediate recall. He was 3/3 for initial registration, 5/5 for orientation to time, 5/[address] and 0/3 for immediate recall of 3 items after a brief time delay and distraction. His performance on the MMSE 2 standard version is within normal limits with a raw score 27 of 30. He was 5/5 for serial sevens, 2/2 for naming, 1/1 for repetition. Auditory comprehension, being able to read and follow single command and write a sentence was within normal limits. He could copy a simple geometric design. Visual spatial and constructive deficits were noted during clock drawing.. The patient is presenting with difficulty in immediate recall and variability in visual spatial organization. Increased anxiety is noted. DIAGNOSTIC IMPRESSION: 1. Mild neurocognitive disorder, without behavior disorder. 2. Unspecified anxiety disorder with mild depression. RECOMMENDATIONS: The patient will benefit from the use of compensatory strategies for variability in his memory. Additionally, indicated is a post-discharge exercise program to maintain physical endurance, strengthening and conditioning. The patient and his might benefit from moving into a half-way community. However, he does indicate having a caregiver/attendant that provides assistance for he and his in their home. Thank you very much for allowing me to provide the consultation on this patient. <ELECTRONICALLY SIGNED> By: Audi Reese, PhD 12/01/17 1845 1433 181 Audi Reese, PhD /nt
--- NOTE | ~2017-11-18 | H ---
[facility] [place] [address] [place] [address] HISTORY AND PHYSICAL Name: POLO VALIENTE Room #: 504-2 ADM IN M.R.#: [id number] Admission: 11/19/17 Attend Phys: Monty Tello MD Discharge: Date of : 30 Report #: [id number] THIS REPORT FOR: //name// CC: [facility] DATE OF SERVICE: 11/20/2017 HISTORY AND PHYSICAL/POST-ADMISSION PHYSICIAN EVALUATION HISTORY OF PRESENT ILLNESS: The patient is an 87-year-old white male originally admitted to [facility] on 11/15/2017 with near syncopal episodes with 4 falls in the last 6 months. He has had problems with recurrent near syncope, orthostatic hypotension, chronic renal insufficiency, creatinine 2.1. He also has multiple myeloma. He has been followed by Cardiology, Nephrology, Geriatrics, Hematology as well as Internal Medicine. They restarted his Lasix at a low dose. He was noted to have significant functional mobility and ADL deficits with a decline in his premorbid function. He has been admitted now for acute in-hospital inpatient rehabilitation. PAST MEDICAL HISTORY: Peripheral neuropathy. He had an episode of encephalopathy, warranting an acute rehab stay back in 01/2017. He has had a permanent pacemaker. He has chronic renal insufficiency, coronary artery bypass grafting x 2 subdural hematoma in 2003, prior history of pneumonia, hypertension, COPD. There is a note of some dementia, nevertheless living in the community and obstructive sleep apnea. ALLERGIES: INCLUDE LATEX AND ALBUTEROL. SOCIAL HISTORY: Lives with his in a house, 2 steps in, 13 inside. He attended to stay on the main level and no longer goes up and down the steps. He has used a walker. REVIEW OF SYSTEMS: No current complaints of chest pain, shortness of breath, abdominal discomfort. He has definite concerns with standing up with concern regarding dizziness and has had issues regarding the frequent falls. No focal extremity pain complaints. No headache. PHYSICAL EXAMINATION: GENERAL: An 87-year-old white male in no obvious distress. VITAL SIGNS: Last recorded temperature is 36.7, pulse 74, respirations 18, blood pressure 133/67. HEENT: Facies are symmetric, was seen earlier and was in no distress. Follows basic 1 step commands. CHEST: Sounded clear to auscultation. CARDIAC: Regular rate and rhythm. [facility] [address] [place] [address] HISTORY AND PHYSICAL Name: POLO VALIENTE Room #: 504-2 ADM IN M.R.#: [id number] Admission: 11/19/17 Attend Phys: Monty Tello MD Discharge: Date of : 30 Report #: [id number] ABDOMEN: Bowel sounds positive, nontender. GENITOURINARY AND RECTAL: Deferred. EXTREMITIES: He has functional range of motion of both upper extremities with strength grade 4 to 4-/5. DTRs are trace to 1. Lower extremities, no focal calf swelling, functional range of motion with strength grade 4- to 4/5. DTRs are trace to 1. He has been contact guard assistance for sit to stand and was able to ambulate short distances with a front-wheeled walker. He has been needing assistance with basic ADLs. ASSESSMENT: An 87-year-old white male with the following problem list: 1. Recurrent near syncope with orthostatic hypotension. 2. Frequent falls. 3. Renal insufficiency with Nephrology involved. 4. Multiple myeloma. 5. History of permanent pacemaker with Cardiology involved. 6. History of paroxysmal atrial fibrillation. 7. Obstructive sleep apnea. 8. Coronary artery disease, clinically stable. 9. Past history of subdural hematoma in 2003. 10. Hypertension. 11. History of pulmonary embolism in 2007. PLAN: The patient is admitted for acute in-hospital inpatient rehabilitation. From a postadmission physician evaluation perspective, there are no relevant changes since the preadmission screening. Please see the patient's previous and current functional status. As far as risk of complications, the patient has multiple medical comorbidities as noted above. Initial plan of care involves the interdisciplinary acute inpatient rehabilitation program with the goal of maximizing his functional independence, so he can hopefully return back to his prior living situation. Measurable functional goals would be for him to become modified independent with transfers, mobility and ADLs, so he can return back to the home setting. Prognosis is reasonably good with estimated length of stay, likely at least 7-14 days pending progress. The patient meets diagnostic criteria for an acute in-hospital inpatient rehabilitation stay. He meets medical necessity criteria and we will have the multiple investment consultant physicians continue to follow. He is on rehabilitation. Again, he has had involvement with Cardiology, Nephrology, Hematology as well as Internal Medicine. He does have the tolerance for therapies and has appropriate discharge goals back to the home setting. <ELECTRONICALLY SIGNED> By: Monty Tello MD 11/20/17 1124 0952 1011 Monty Tello MD /MCKENZIE
[2017-11-19] MEDS ORDERED: K-DUR 20 MEQ T20 MEQ PO (08:57)
[2017-11-19] MEDS ORDERED: MIDODRINE HCL 55 M1 PO (08:57)
[2017-11-19] MEDS ORDERED: PREDNISONE 10 M10 MG PO (08:58)
[2017-11-19] MEDS ORDERED: SENNA8.6 MG PO (08:58)
[2017-11-19 15:00] VITALS: BP 124/62
[2017-11-19 20:00] VITALS: BP 162/83
[2017-11-20 05:52] LABS: ABSOLUTE NEUTROPHILS 8.4 thou/uL (1.4-8.2); BASOPHILS 0.3 % (0.0-2.0); HEMATOCRIT 34.7 % (42.0-52.0); LYMPHOCYTES 18.5 % (24.0-44.0); MCH 31.3 pg (26.0-34.0); MCHC 34.5 g/dL (28.0-37.0); MCV 90.6 fL (80.0-100.0); MONOCYTES 10.6 % (1.0-8.0); PLATELET COUNT 158 thou/uL (150-400); POLYS 70.6 % (36.0-66.0); RBC 3.83 mil/uL (4.50-6.00); RDW 13.4 % (10.5-14.5); WBC 11.9 thou/uL (4.0-11.0)
[2017-11-20 06:02] LABS: CALCIUM 8.5 mg/dL (8.5-10.1); CREATININE 2.2 mg/dL (0.7-1.3); POTASSIUM 3.7 mmol/L (3.5-5.1)
[2017-11-20 08:00] VITALS: BP 133/61
[2017-11-20 19:48] VITALS: BP 157/85
[2017-11-21 07:25] VITALS: BP 129/62
[2017-11-21 11:15] VITALS: BP 117/63
[2017-11-21 14:00] VITALS: BP 142/79
[2017-11-21 18:26] VITALS: BP 121/84
[2017-11-21 19:10] VITALS: BP 138/69
[2017-11-22 07:30] VITALS: BP 110/78
[2017-11-22 07:45] VITALS: BP 152/58
[2017-11-22 13:09] VITALS: BP 141/77
[2017-11-22 17:20] VITALS: BP 170/85
[2017-11-22 20:00] VITALS: BP 144/66
[2017-11-23 07:45] VITALS: BP 150/77
[2017-11-23 20:00] VITALS: BP 167/82
[2017-11-24 04:45] LABS: ABSOLUTE NEUTROPHILS 14.3 thou/uL (1.4-8.2); HEMATOCRIT 33.8 % (42.0-52.0); HEMOGLOBIN 11.6 gm/dL (14.0-18.0); LYMPHOCYTES 2.4 % (24.0-44.0); MCH 30.9 pg (26.0-34.0); MCHC 34.3 g/dL (28.0-37.0); MCV 90.2 fL (80.0-100.0); MONOCYTES 2.9 % (1.0-8.0); PLATELET COUNT 187 thou/uL (150-400); POLYS 94.7 % (36.0-66.0); RBC 3.74 mil/uL (4.50-6.00); RDW 13.3 % (10.5-14.5); WBC 15.1 thou/uL (4.0-11.0)
[2017-11-24 04:51] LABS: CALCIUM 8.6 mg/dL (8.5-10.1); CREATININE 2.5 mg/dL (0.7-1.3); MAGNESIUM 2.3 mg/dL (1.8-2.4); POTASSIUM 4.4 mmol/L (3.5-5.1)
[2017-11-24 07:11] VITALS: BP 148/68
[2017-11-24 12:38] VITALS: BP 139/65
[2017-11-24 17:04] VITALS: BP 177/79
[2017-11-24 19:24] VITALS: BP 180/74
[2017-11-24 22:00] VITALS: BP 160/76
[2017-11-25 04:59] LABS: ABSOLUTE NEUTROPHILS 12.2 thou/uL (1.4-8.2); BASOPHILS 0.1 % (0.0-2.0); HEMATOCRIT 33.7 % (42.0-52.0); HEMOGLOBIN 11.7 gm/dL (14.0-18.0); LYMPHOCYTES 2.5 % (24.0-44.0); MCH 31.1 pg (26.0-34.0); MCHC 34.7 g/dL (28.0-37.0); MCV 89.7 fL (80.0-100.0); MONOCYTES 4.4 % (1.0-8.0); PLATELET COUNT 157 thou/uL (150-400); RBC 3.76 mil/uL (4.50-6.00); RDW 13.4 % (10.5-14.5); WBC 13.1 thou/uL (4.0-11.0)
[2017-11-25 05:08] LABS: CALCIUM 8.6 mg/dL (8.5-10.1); CREATININE 2.5 mg/dL (0.7-1.3); POTASSIUM 4.1 mmol/L (3.5-5.1)
[2017-11-25 07:50] VITALS: BP 142/45
[2017-11-25 20:00] VITALS: BP 168/81
[2017-11-26 08:00] VITALS: BP 164/82
[2017-11-26 19:40] VITALS: BP 174/85
[2017-11-27 07:40] LABS: ALBUMIN 2.5 g/dL (3.4-5.0); CALCIUM 8.6 mg/dL (8.5-10.1); CREATININE 2.5 mg/dL (0.7-1.3); PHOSPHORUS 3.9 mg/dL (2.5-4.9); POTASSIUM 4.2 mmol/L (3.5-5.1)
[2017-11-27 07:54] VITALS: BP 141/63
[2017-11-27 14:59] VITALS: BP 141/63
[2017-11-27 20:27] VITALS: BP 156/59
[2017-11-28 07:15] VITALS: BP 163/79
[2017-11-28] MEDS ORDERED: PROTONIX40 M1 PO (09:50)
[2017-11-28] MEDS ORDERED: ZYRTEC10 M2 PO (09:50)
[2017-11-28] MEDS ORDERED: MUCINEX600 MG PO (09:50)
[2017-11-28] MEDS ORDERED: PACERONE 200 M200 M1 PO (09:50)
[2017-11-28] MEDS ORDERED: SAVAYSA30 MG PO (09:50)
[2017-11-28] MEDS ORDERED: TESSALON PERLE100 MG PO (09:50)
[2017-11-28] MEDS ORDERED: FLONASE 0.05%50 MCG NASAL (09:50)
[2017-11-28] MEDS ORDERED: PREDNISONE 10 M10 MG PO (09:54)
[2017-11-28 10:31] VITALS: BP 141/63
[2017-11-28 12:42] VITALS: BP 141/63
== END 2017-11-28 11:30 | disposition home health service (06) | DRG 948 ==
LOC: ENTRNSPT 11-28 11:29 → EDTRNSPTSTS 11-28 12:55
PROVIDERS: Family Medicine; Hospitalist; Nurse Practitioner; Physical Medicine & Rehabilitation
DX: R53.81 Other malaise (principal); C90.00 Multiple myeloma not having achieved remission; N17.9 Acute kidney failure, unspecified; G62.9 Polyneuropathy, unspecified; I95.1 Orthostatic hypotension; I48.0 Paroxysmal atrial fibrillation; G47.33 Obstructive sleep apnea (adult) (pediatric); I25.10 Atherosclerotic heart disease of native coronary artery without angina pectoris; R05 Cough; J44.9 Chronic obstructive pulmonary disease, unspecified; N18.3 Chronic kidney disease, stage 3 (moderate); I12.9 Hypertensive chronic kidney disease with stage 1 through stage 4 chronic kidney disease, or unspecified chronic kidney disease; E03.9 Hypothyroidism, unspecified; F03.90 Unspecified dementia, unspecified severity, without behavioral disturbance, psychotic disturbance, mood disturbance, and anxiety; E78.5 Hyperlipidemia, unspecified; Z96.651 Presence of right artificial knee joint; F41.8 Other specified anxiety disorders; G31.84 Mild cognitive impairment of uncertain or unknown etiology; M19.90 Unspecified osteoarthritis, unspecified site; Z95.0 Presence of cardiac pacemaker; Z86.711 Personal history of pulmonary embolism; Z79.01 Long term (current) use of anticoagulants; Z86.73 Personal history of transient ischemic attack (TIA), and cerebral infarction without residual deficits; Z91.81 History of falling; Z87.81 Personal history of (healed) traumatic fracture; Z95.5 Presence of coronary angioplasty implant and graft; Z95.1 Presence of aortocoronary bypass graft; Z98.49 Cataract extraction status, unspecified eye; Z88.8 Allergy status to other drugs, medicaments and biological substances; Z91.040 Latex allergy status; Z87.891 Personal history of nicotine dependence; Z87.01 Personal history of pneumonia (recurrent)
CPT/HCPCS: 10092; 10112

== ENCOUNTER 2017-12-04 10:52 | Inpatient (IN) | payer OTHER ==
[~2017-12-04] VITALS: Ht 182.9 cm; Wt 102.6 kg
--- NOTE | ~2017-12-04 | HC ---
[facility] [place] [address] CONSULTATION Name: POLO VALIENTE Room #: 364-P ADM IN M.R.#: [id number] Admission: 12/04/17 Attend Phys: Romario Zafar MD Discharge: Date of : 30 Report #: [id number] THIS REPORT FOR: //name// CC: Romario Jimenez MD DATE OF SERVICE: 12/04/2017 REFERRING PHYSICIAN: Hospitalist. REASON FOR REFERRAL: Persistent cough. PRIMARY CARE PHYSICIAN: Dr. Von Jimenez. REASON FOR REFERRAL: Persistent cough. HISTORY OF PRESENT ILLNESS: The patient is an 87-year-old white male who presents again to the Emergency Room with severe paroxysmal cough. A pulmonary consultation was requested. The patient was recently hospitalized on 11/15/2017 following a near syncopal episode and weakness. He was then transferred to rehabilitation. He was subsequently discharged on 11/27/2017 to home. According to the patient, he has had trouble with cough for the past several months. It is worse with exertion, talking. He coughs throughout the night. He complains of throat irritation. The patient has a history of chronic obstructive pulmonary disease, along with sleep apnea on CPAP. He also has dementia with past history of coronary artery disease. Otherwise, denies any fever, night sweats or chills, chest pain, productive cough. PAST MEDICAL HISTORY: Notable for chronic obstructive pulmonary disease, history of falls resulting in chest trauma, rib fracture in 2014, atrial fibrillation, obstructive sleep apnea on home CPAP, dementia, chronic kidney disease, coronary artery disease with prior stent placement, status post coronary bypass surgery, history of cerebrovascular accident in 2001, subdural hematoma in 2003, multiple myeloma diagnosed in 2007, hypertension, hyperlipidemia, history of pulmonary embolus 2007. PAST SURGICAL HISTORY: As mentioned above including prior back surgery, knee surgery, pacemaker placement. [facility] [address] [place] [address] CONSULTATION Name: POLO VALIENTE Room #: 364-P ADM IN [facility]#: [id number] Admission: 12/04/17 Attend Phys: Romario Zafar MD Discharge: Date of : 30 Report #: [id number] ALLERGIES: INTOLERANCE TO ALBUTEROL, WHICH CAUSES TACHYCARDIA, LATEX CAUSES SEVERE MYERS. CURRENT MEDICATIONS: Reviewed. FAMILY HISTORY: Noncontributory. SOCIAL HISTORY: The patient has smoked in the past, but quit many years ago. Denies any alcohol use. REVIEW OF SYSTEMS: As mentioned above, otherwise 10-point system review negative. PHYSICAL EXAMINATION: He is awake, alert, in no apparent distress. LABORATORY DATA: Chest x-ray shows mild chronic interstitial changes, otherwise no acute findings. Influenza antigen A and B are negative. Electrolytes are normal except for creatinine 2.1. WBC 13,500, hemoglobin 12.4 without evidence of bandemia. No evidence of eosinophilia. Troponin is 0.06. Arterial blood gas revealed pH 7.42, pCO2 of 29, pO2 of 66 on room air. Albumin 2.5. IMPRESSION: 1. Persistent cough in this 87-year-old white male for the past several months. The cough is exacerbated by exertion. He also coughs intermittently throughout the night. He has a history of chronic obstructive pulmonary disease and sleep apnea. Etiology is probably related to underlying chronic obstructive pulmonary disease. Nocturnal reflux may be contributing. Upper airway pathology should also be considered. 2. Chronic obstructive pulmonary disease without evidence of exacerbation at this time. 3. Obstructive sleep apnea, on CPAP. 4. Chronic kidney disease. 5. Past history of pulmonary embolus, on anticoagulation. RECOMMENDATION: Would suggest aggressively treating for reflux disease, continue bronchodilators. Will proceed with CT of the neck to rule out other pathology. Overnight oximetry study will be helpful to assure that his sleep apnea is adequately treated. If after above, cough persists, may consider antitussives p.r.n. [facility] [address] [place] [address] CONSULTATION Name: POLO VALIENTE AYSHA Room #: 364-P [facility] IN .R.#: [id number] Admission: 12/04/17 Attend Phys: Romario Zafar MD Discharge: Date of : 30 Report #: [id number] Thank you for this consultation. <ELECTRONICALLY SIGNED> By: Kenny Christopher MD 12/05/17 1510 1618 03 Kenny Christopher MD /kathie
--- NOTE | ~2017-12-04 | EKG ---
[place] [address] [address] 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: [facility] : 1930 Requested By: Rizwan Orozco Order Number: [id number] MD: Brian Noyola Measurements Intervals [place] Rate: 79 P: 6 HI: 193 QRS: -45 QRSD: 148 T: 90 QT: 426 QTc: 489 Interpretive Statements Sinus rhythm Multiform ventricular premature complexes Left bundle branch block Compared to ECG 11/15/2017 14:26:14 Ventricular premature complex(es) now present Atrial-paced complex(es) or rhythm no longer present Electronically Signed On 12-04-2017 17:34:12 CDT by Brian Noyola [email or web address] <ELECTRONICALLY SIGNED> By: Brian Noyola MD, [facility] 12/04/17 1734 1107 1107 Brian Noyola MD, [facility] /EPI
--- NOTE | ~2017-12-04 | HC ---
[facility] [place] [address] CONSULTATION Name: POLO VALIENTE Room #: 364-P ADM IN M.R.#: [id number] Admission: 12/04/17 Attend Phys: Romario Zafar MD Discharge: Date of : 30 Report #: [id number] THIS REPORT FOR: //name// CC: [facility] DATE OF SERVICE: 12/04/2017 REASON FOR CONSULTATION: Elevated troponin. HISTORY OF PRESENT ILLNESS: The patient is an 87-year-old who follows with Dr. Carver for coronary artery disease. I previously performed a generator exchange on him back in 12/2016. He has a longstanding history of sick sinus syndrome as well as paroxysmal atrial fibrillation. Other medical issues include COPD, chronic renal insufficiency, obstructive sleep apnea, prior CABG, CVA, subdural hematoma and prior pulmonary embolus as well as hypertension, hyperlipidemia, and pneumonia. Apparently, the patient was just here in the hospital recently discharged, was at rehab and started experiencing increased shortness of breath. He denies any fevers or chills. He denies any chest pain or chest tightness. He denies PND or orthopnea. He denies recurrent lightheaded or syncopal episodes. REVIEW OF SYSTEMS: A full 12-point review of systems was performed, was negative other than what I mentioned above. PAST MEDICAL HISTORY: As mentioned above. SOCIAL HISTORY: Does not smoke. FAMILY HISTORY: Noncontributory. ALLERGIES: INCLUDE ALBUTEROL AND LATEX. MEDICATIONS: Include sennosides, multivitamin, loratadine, fluticasone, citalopram, atorvastatin 40 a day, amiodarone 200 a day, pantoprazole, Synthroid, insulin, glucosamine, fish oil, budesonide, methylprednisolone and nebulizers. PHYSICAL EXAMINATION: VITAL SIGNS: Temperature is 37.4, respirations 18, blood pressure 180/88, sats are 96%. GENERAL: He is alert, oriented x 3, in no acute distress. HEENT: Sclerae anicteric. Oropharynx is clear. NECK: Supple, with no thyromegaly or carotid bruits. HEART: Regular rate and rhythm with normal S1 and S2. No S3 or S4. He does not have elevated jugular venous pressure. [address] [address] CONSULTATION Name: POLO VALIENTE AYSHA Room #: 364-P [facility] IN .R.#: [id number] Admission: 12/04/17 Attend Phys: Romario Zafar MD Discharge: Date of : 30 Report #: [id number] LUNGS: Clear to auscultation bilaterally. ABDOMEN: Soft, nontender, nondistended with no hepatosplenomegaly. EXTREMITIES: There is no clubbing, cyanosis or edema. NEUROLOGIC: Cranial nerves 2-12 are intact. LABORATORY DATA: White count is 13, hemoglobin 12, platelets 113. Blood gas, pH 7.4, pCO2 29, pO2 66. Chemistry: Potassium 4.2, creatinine 2.1. Troponin 0.06. BNP is 999. Chest x-ray, I personally reviewed. There is no pulmonary edema. His EKG shows normal sinus rhythm with a left bundle-branch block and occasional PVCs. His most recent echo was on 11/15/2017, which shows an EF of 55-60% with no significant valvular abnormalities. ASSESSMENT AND PLAN: 1. Elevated troponin in the indeterminate range. 2. Shortness of breath. 3. Coronary artery disease. 4. Chronic obstructive pulmonary disease. 5. Atrial fibrillation. 6. Sick sinus syndrome. In summary, the patient is an 87-year-old presenting with worsening shortness of breath. It is possible this is related to his COPD. He does not appear to be clinically volume overload to suggest that he is in congestive heart failure. He has recently had an echocardiogram showing normal LV size and function. His troponin is in the indeterminate range and I do not believe this represents an acute coronary syndrome. I do not think further evaluation for this troponin is required. I would recommend monitoring his blood pressure and if this remains elevated, we may need to start him on a low dose antihypertensive medication keeping in mind that he did have some orthostasis at the last admission. We will continue to follow. By: [id number] Leonard Loera MD /nt
[~2017-12-04 10:52] MED LIST changes: +FLONASE 0.05%50 MCG NASAL; +MIDODRINE HCL 55 M1 PO; +MUCINEX600 MG PO; +PROTONIX40 M1 PO; +TESSALON PERLE100 MG PO
[2017-12-04 10:56] VITALS: BP 192/101
[2017-12-04 11:24] LABS: BE(vivo) -3.9 mmol/L (-2 to +3); HCO3 19.4 mmol/L (22.0-26.0); PCO2 29.9 mmHg (35.0-45.0); PO2 66.6 mmHg (80.0-100.0); pH 7.429 (7.360-7.450)
[2017-12-04 11:50] LABS: ABSOLUTE NEUTROPHILS 12.5 thou/uL (1.4-8.2); BASOPHILS 0.2 % (0.0-2.0); HEMATOCRIT 37.4 % (42.0-52.0); HEMOGLOBIN 12.4 gm/dL (14.0-18.0); LYMPHOCYTES 3.2 % (24.0-44.0); MCH 30.4 pg (26.0-34.0); MCHC 33.3 g/dL (28.0-37.0); MCV 91.3 fL (80.0-100.0); MONOCYTES 4.2 % (1.0-8.0); PLATELET COUNT 113 thou/uL (150-400); POLYS 92.4 % (36.0-66.0); RBC 4.09 mil/uL (4.50-6.00); RDW 13.8 % (10.5-14.5); WBC 13.5 thou/uL (4.0-11.0)
[2017-12-04 11:55] LABS: CALCIUM 8.3 mg/dL (8.5-10.1); CREATININE 2.1 mg/dL (0.7-1.3); POTASSIUM 4.2 mmol/L (3.5-5.1)
[2017-12-04 12:04] LABS: TROPONIN-I 0.06 ng/mL (<0.06)
[2017-12-04 13:24] VITALS: BP 192/101
[2017-12-04 13:51] VITALS: BP 173/84
[2017-12-04 14:30] VITALS: BP 180/88
[2017-12-04 19:06] VITALS: BP 148/88
[2017-12-05 03:15] VITALS: BP 168/90
[2017-12-05 07:19] VITALS: BP 158/88
[2017-12-05 11:38] VITALS: BP 142/80
[2017-12-05 15:16] VITALS: BP 135/75
[2017-12-05 20:26] VITALS: BP 154/74
[2017-12-06] VITALS (7 sets, daily range): BP systolic 123–198; BP diastolic 66–95
[2017-12-06 10:15] LABS: HEMATOCRIT 33.1 % (42.0-52.0); HEMOGLOBIN 11.3 gm/dL (14.0-18.0); MCH 30.8 pg (26.0-34.0); MCHC 34.2 g/dL (28.0-37.0); MCV 90.1 fL (80.0-100.0); RBC 3.68 mil/uL (4.50-6.00); RDW 13.7 % (10.5-14.5); WBC 11.1 thou/uL (4.0-11.0)
[2017-12-06 10:25] LABS: CALCIUM 7.9 mg/dL (8.5-10.1); CREATININE 2.5 mg/dL (0.7-1.3); MAGNESIUM 2.2 mg/dL (1.8-2.4); POTASSIUM 4.3 mmol/L (3.5-5.1)
[2017-12-07 03:33] VITALS: BP 141/85
[2017-12-07 06:31] LABS: HEMATOCRIT 33.6 % (42.0-52.0); HEMOGLOBIN 11.6 gm/dL (14.0-18.0); MCHC 34.4 g/dL (28.0-37.0); MCV 89.9 fL (80.0-100.0); RBC 3.74 mil/uL (4.50-6.00); RDW 13.5 % (10.5-14.5); WBC 11.5 thou/uL (4.0-11.0)
[2017-12-07 06:37] LABS: CALCIUM 7.6 mg/dL (8.5-10.1); CREATININE 2.6 mg/dL (0.7-1.3); MAGNESIUM 2.3 mg/dL (1.8-2.4); POTASSIUM 3.7 mmol/L (3.5-5.1)
[2017-12-07 07:32] VITALS: BP 180/97
[2017-12-07 11:09] VITALS: BP 125/69
[2017-12-07 14:10] LABS: PSA TOTAL 9.8 ng/mL (0.0-4.0)
[2017-12-07 15:55] VITALS: BP 151/86
[2017-12-07 19:43] VITALS: BP 129/75
[2017-12-08 03:33] VITALS: BP 154/97
[2017-12-08 05:27] LABS: CALCIUM 7.4 mg/dL (8.5-10.1); CREATININE 2.7 mg/dL (0.7-1.3); MAGNESIUM 2.6 mg/dL (1.8-2.4); POTASSIUM 3.6 mmol/L (3.5-5.1)
[2017-12-08 05:48] LABS: HEMATOCRIT 32.5 % (42.0-52.0); HEMOGLOBIN 11.2 gm/dL (14.0-18.0); MCHC 34.6 g/dL (28.0-37.0); MCV 89.6 fL (80.0-100.0); RBC 3.63 mil/uL (4.50-6.00); RDW 13.4 % (10.5-14.5); WBC 9.6 thou/uL (4.0-11.0)
[2017-12-08 08:05] VITALS: BP 158/95
[2017-12-08 11:25] VITALS: BP 158/95
[2017-12-08 13:07] LABS: FREE PSA 0.35 ng/mL; FREE PSA RATIO 3.6 % (())
[2017-12-08 16:23] VITALS: BP 128/78
[2017-12-08 19:25] VITALS: BP 182/85
[2017-12-09 00:20] VITALS: BP 134/75
[2017-12-09 03:46] VITALS: BP 148/86
[2017-12-09 04:50] LABS: CALCIUM 7.1 mg/dL (8.5-10.1); CREATININE 2.6 mg/dL (0.7-1.3); MAGNESIUM 2.5 mg/dL (1.8-2.4); POTASSIUM 3.2 mmol/L (3.5-5.1)
[2017-12-09 07:14] LABS: HEMATOCRIT 32.5 % (42.0-52.0); HEMOGLOBIN 11.2 gm/dL (14.0-18.0); MCH 30.8 pg (26.0-34.0); MCHC 34.3 g/dL (28.0-37.0); MCV 89.6 fL (80.0-100.0); RBC 3.63 mil/uL (4.50-6.00); RDW 13.4 % (10.5-14.5); WBC 8.6 thou/uL (4.0-11.0)
[2017-12-09 08:10] VITALS: BP 136/71
[2017-12-09 12:00] VITALS: BP 165/76
[2017-12-09 15:50] VITALS: BP 150/83
[2017-12-09 19:15] VITALS: BP 161/84
[2017-12-10 03:38] VITALS: BP 149/83
[2017-12-10 07:57] VITALS: BP 183/91
[2017-12-10 08:45] LABS: CALCIUM 7.3 mg/dL (8.5-10.1); CREATININE 2.5 mg/dL (0.7-1.3); POTASSIUM 3.3 mmol/L (3.5-5.1)
[2017-12-10 12:00] VITALS: BP 146/71
[2017-12-10] MEDS ORDERED: CARVEDILOL12.5 MG PO (12:20)
[2017-12-10] MEDS ORDERED: NORVASC2.5 MG PO (12:21)
[2017-12-10] MEDS ORDERED: LASIX 40 MG TAB40 M1 PO (12:21)
[2017-12-10] MEDS ORDERED: PREDNISONE 10 M10 MG PO (12:27)
[2017-12-10] MEDS ORDERED: AUGMENTIN 875-1 EACH PO (12:30)
== END 2017-12-10 15:30 | DRG 177 ==
LOC: ER 10:52 → EROBS 12:37 → 3W 12:37
PROVIDERS: Internal Medicine; Internal Medicine Pulmonary Disease; Nurse Practitioner Adult Health; Physician Assistant
DX: J69.0 Pneumonitis due to inhalation of food and vomit (principal); J96.21 Acute and chronic respiratory failure with hypoxia; I50.33 Acute on chronic diastolic (congestive) heart failure; N17.9 Acute kidney failure, unspecified; J44.1 Chronic obstructive pulmonary disease with (acute) exacerbation; E44.0 Moderate protein-calorie malnutrition; I13.0 Hypertensive heart and chronic kidney disease with heart failure and stage 1 through stage 4 chronic kidney disease, or unspecified chronic kidney disease; I48.91 Unspecified atrial fibrillation; F03.90 Unspecified dementia, unspecified severity, without behavioral disturbance, psychotic disturbance, mood disturbance, and anxiety; N18.3 Chronic kidney disease, stage 3 (moderate); E78.5 Hyperlipidemia, unspecified; I25.10 Atherosclerotic heart disease of native coronary artery without angina pectoris; I49.5 Sick sinus syndrome; Z96.651 Presence of right artificial knee joint; I16.0 Hypertensive urgency; G47.33 Obstructive sleep apnea (adult) (pediatric); E03.9 Hypothyroidism, unspecified; I95.1 Orthostatic hypotension; J01.90 Acute sinusitis, unspecified; Z95.5 Presence of coronary angioplasty implant and graft; Z79.899 Other long term (current) drug therapy; Z87.81 Personal history of (healed) traumatic fracture; Z88.8 Allergy status to other drugs, medicaments and biological substances; Z98.42 Cataract extraction status, left eye; Z98.41 Cataract extraction status, right eye; Z95.1 Presence of aortocoronary bypass graft; Z86.73 Personal history of transient ischemic attack (TIA), and cerebral infarction without residual deficits; Z95.0 Presence of cardiac pacemaker; Z68.30 Body mass index [BMI] 30.0-30.9, adult; Z86.711 Personal history of pulmonary embolism; Z91.040 Latex allergy status; Z79.01 Long term (current) use of anticoagulants; Z87.891 Personal history of nicotine dependence
CPT/HCPCS: 10879

== ENCOUNTER → 2017-12-29 | Outpatient (CLI) | payer OTHER ==
[~2017-12-29] MED LIST changes: +CARVEDILOL12.5 MG PO; +NORVASC2.5 MG PO
== END ==
LOC: SPEECH 06:25 → RAD 06:25
DX: R13.12 Dysphagia, oropharyngeal phase (principal)

== ENCOUNTER 2018-02-11 13:14 | Emergency (ER) | payer OTHER ==
[~2018-02-11] VITALS: Ht 182.9 cm; Wt 97.1 kg
[2018-02-11 13:15] VITALS: BP 147/76
== END 2018-02-11 15:04 | disposition home or self-care (01) ==
LOC: ER 13:14
DX: S51.811A Laceration without foreign body of right forearm, initial encounter (principal); J44.9 Chronic obstructive pulmonary disease, unspecified; I48.91 Unspecified atrial fibrillation; E03.9 Hypothyroidism, unspecified; E78.5 Hyperlipidemia, unspecified; M19.90 Unspecified osteoarthritis, unspecified site; Z87.01 Personal history of pneumonia (recurrent); Z95.1 Presence of aortocoronary bypass graft; Z95.0 Presence of cardiac pacemaker; I12.9 Hypertensive chronic kidney disease with stage 1 through stage 4 chronic kidney disease, or unspecified chronic kidney disease; N18.3 Chronic kidney disease, stage 3 (moderate); Z87.891 Personal history of nicotine dependence; Z91.040 Latex allergy status; W19.XXXA Unspecified fall, initial encounter; Y93.89 Activity, other specified; Y92.89 Other specified places as the place of occurrence of the external cause; Y99.8 Other external cause status

== ENCOUNTER 2018-08-03 11:29 | Emergency (ER) | payer OTHER ==
[~2018-08-03] VITALS: Ht 182.9 cm; Wt 109.9 kg
[2018-08-03 15:49] VITALS: BP 138/68
== END 2018-08-03 15:50 | disposition home or self-care (01) ==
LOC: ER 11:29
DX: M54.5 Low back pain (principal); M25.551 Pain in right hip; E03.9 Hypothyroidism, unspecified; M48.061 Spinal stenosis, lumbar region without neurogenic claudication; M19.90 Unspecified osteoarthritis, unspecified site; E78.5 Hyperlipidemia, unspecified; G62.9 Polyneuropathy, unspecified; I48.91 Unspecified atrial fibrillation; J44.9 Chronic obstructive pulmonary disease, unspecified; F03.90 Unspecified dementia, unspecified severity, without behavioral disturbance, psychotic disturbance, mood disturbance, and anxiety; I13.0 Hypertensive heart and chronic kidney disease with heart failure and stage 1 through stage 4 chronic kidney disease, or unspecified chronic kidney disease; N18.3 Chronic kidney disease, stage 3 (moderate); I50.9 Heart failure, unspecified; G47.30 Sleep apnea, unspecified; Z85.828 Personal history of other malignant neoplasm of skin; Z86.73 Personal history of transient ischemic attack (TIA), and cerebral infarction without residual deficits; Z96.651 Presence of right artificial knee joint; Z87.891 Personal history of nicotine dependence; Z91.040 Latex allergy status; Z88.8 Allergy status to other drugs, medicaments and biological substances; Z95.0 Presence of cardiac pacemaker; Z90.79 Acquired absence of other genital organ(s); W18.39XA Other fall on same level, initial encounter; Y92.002 Bathroom of unspecified non-institutional (private) residence as the place of occurrence of the external cause; Y93.89 Activity, other specified; Y99.8 Other external cause status

== ENCOUNTER 2018-08-05 08:48 | Observation (INO) | payer OTHER ==
[~2018-08-05] VITALS: Ht 185.4 cm; Wt 101.8 kg
[2018-08-05 08:49] VITALS: BP 139/73
[2018-08-05 09:17] LABS: URINE BILIRUBIN NEGATIVE (Negative); URINE BLOOD NEGATIVE (Negative); URINE CLARITY CLEAR; URINE COLOR YELLOW; URINE GLUCOSE-RANDOM* NEGATIVE (Negative); URINE KETONES NEGATIVE (Negative); URINE LEUKOCYTES-REFLEX NEGATIVE (Negative); URINE NITRITE-REFLEX NEGATIVE (Negative); URINE PROTEIN (DIPSTICK) NEGATIVE (Negative); URINE SPECIFIC GRAVITY 1.025 (1.005-1.035); URINE UROBILINOGEN 0.2 E.U./dl (0.2-1.0)
[2018-08-05 09:22] LABS: ABSOLUTE NEUTROPHILS 13.2 thou/uL (1.4-8.2); BASOPHILS 0.4 % (0.0-2.0); HEMATOCRIT 33.7 % (42.0-52.0); HEMOGLOBIN 11.2 gm/dL (14.0-18.0); LYMPHOCYTES 7.1 % (24.0-44.0); MCH 30.5 pg (26.0-34.0); MCHC 33.2 g/dL (28.0-37.0); MCV 92.1 fL (80.0-100.0); MONOCYTES 8.1 % (1.0-8.0); PLATELET COUNT 160 thou/uL (150-400); POLYS 84.4 % (36.0-66.0); RBC 3.66 mil/uL (4.50-6.00); WBC 15.7 thou/uL (4.0-11.0)
[2018-08-05 09:24] LABS: CALCIUM 9.1 mg/dL (8.5-10.1); CREATININE 2.6 mg/dL (0.7-1.3); POTASSIUM 4.6 mmol/L (3.5-5.1)
[2018-08-05 09:29] LABS: ALBUMIN 2.4 g/dL (3.4-5.0); DIRECT BILIRUBIN 0.2 mg/dL (<0.1-0.3); TOTAL BILIRUBIN 0.7 mg/dL (<0.1-1.0); TOTAL PROTEIN 6.2 g/dL (6.4-8.2)
[2018-08-05 11:00] VITALS: BP 133/62
[2018-08-05 13:47] VITALS: BP 141/65; BP 149/52
[2018-08-05 14:47] VITALS: BP 155/58
[2018-08-05 16:44] VITALS: BP 155/58
[2018-08-05 17:19] VITALS: BP 155/58
== END 2018-08-05 18:22 | disposition hospice, home (50) ==
LOC: ER 08:48 → EROBS 10:53 → 4E 13:47
PROVIDERS: Emergency Medicine
DX: R41.82 Altered mental status, unspecified (principal); J96.90 Respiratory failure, unspecified, unspecified whether with hypoxia or hypercapnia; M54.5 Low back pain; J44.9 Chronic obstructive pulmonary disease, unspecified; E78.5 Hyperlipidemia, unspecified; M19.90 Unspecified osteoarthritis, unspecified site; I13.0 Hypertensive heart and chronic kidney disease with heart failure and stage 1 through stage 4 chronic kidney disease, or unspecified chronic kidney disease; N18.3 Chronic kidney disease, stage 3 (moderate); I50.9 Heart failure, unspecified; N17.9 Acute kidney failure, unspecified; E03.9 Hypothyroidism, unspecified; F03.90 Unspecified dementia, unspecified severity, without behavioral disturbance, psychotic disturbance, mood disturbance, and anxiety; I48.91 Unspecified atrial fibrillation; I25.10 Atherosclerotic heart disease of native coronary artery without angina pectoris; G62.9 Polyneuropathy, unspecified; G47.33 Obstructive sleep apnea (adult) (pediatric); Z95.0 Presence of cardiac pacemaker; Z86.73 Personal history of transient ischemic attack (TIA), and cerebral infarction without residual deficits; Z98.890 Other specified postprocedural states; Z95.1 Presence of aortocoronary bypass graft; Z79.899 Other long term (current) drug therapy; Z87.891 Personal history of nicotine dependence; Z85.79 Personal history of other malignant neoplasms of lymphoid, hematopoietic and related tissues